=== PATIENT | female | born 1940 | race Caucasian/White ===

== ENCOUNTER 2016-10-01 15:18 | Inpatient (IN) | payer OTHER, MEDICARE ==
--- NOTE | 2016-10-01 15:32 | CPEKG ---
Heart Rate: 76 RR Interval: 789 P-R Interval: 172 QRSD Interval: 66 QT Interval: 376 QTC Interval: 423 P [place]: 41 QRS [place]: -7 T Wave [place]: 26 EKG Severity - ABNORMAL ECG - EKG Impression: SINUS RHYTHM EKG Impression: PROBABLE INFERIOR INFARCT, OLD Electronically Signed By: Cheng Lou 01-Oct-2016 16:30:06
--- NOTE | 2016-10-01 15:44 | EDPHY ---
H & P Time Seen by Provider: 10/01/16 15:25 HPI/ROS: CHIEF COMPLAINT: Headache, left hip pain, low back pain after mechanical fall HISTORY OF PRESENT ILLNESS: The patient presents to the ED complaining of headache, left hip pain, low back pain after mechanical fall at her assisted living facility. The patient denies loss of consciousness. She denies any cervical spine pain. The patient denies the additional complaints of abdominal pain, difficulty breathing, focal numbness or weakness. The patient denies taking anticoagulants but is on Plavix and aspirin. The patient denies prior history of hip replacement or hip fracture. The patient reports her pain is moderate in nature and worsened with movement. REVIEW OF SYSTEMS: A comprehensive 10 point review of systems is otherwise negative aside from elements mentioned in the history of present illness. Source: Patient Exam Limitations: No limitations - Family History Significant Family History: No pertinent family hx - Social History Smoking Status: Never smoked - Physical Exam Exam: General Appearance: Alert, no distress Head: Posterior scalp tenderness, no hematoma Eyes: Pupils equal, round, reactive ENT, Mouth: No hemotympanum, no oral trauma Neck: Minimal tenderness at the base of the skull Respiratory: No chest wall tender, subcutaneous air, lungs clear bilaterally Cardiovascular: Regular rate and rhythm Abdomen: Abdomen is soft and nontender, pelvis stable Skin: Superficial skin abrasions noted to the bilateral upper extremities Back: Tenderness to palpation in the mid lumbar spine Extremities: Tenderness to palpation and active range of motion/passive range of motion left hip Neurological: A&Ox3, normal motor function, normal sensory exam Constitutional: Initial Vital Signs Temperature (C) 36.9 C 10/01/16 15:56 Heart Rate 74 10/01/16 15:56 Respiratory Rate 16 10/01/16 15:56 Blood Pressure 148/110 H 10/01/16 15:56 O2 Sat (%) 93 10/01/16 15:56 O2 Delivery Mode Room Air Allergies/Adverse Reactions: amoxicillin trihydrate [From Augmentin] Allergy (Intermediate, Verified 15:51) fluoxetine Allergy (Intermediate, Verified 10/01/16 15:51) Hives hydrocodone bitartrate [From Vicodin] Allergy (Intermediate, Verified 10/01/16 15:51) potassium clavula *RETIRED-03/25/12 [From Augmentin] Allergy (Intermediate, Verified 10/01/16 15:51) [id number] Reductase Inhibitor Allergy (Verified 10/01/16 15:51) Home Medications: Medication Instructions Recorded Ascorbic Acid [Vitamin C 500 mg 500 mg PO DAILY 10/01/16 (*)] Aspirin EC [Aspirin EC 81 mg (*)] 81 mg PO HS 10/01/16 Cholecalciferol Vit D3 [Vitamin D3 1,000 units PO BID 10/01/16 (*)] Clopidogrel Bisulfate [Plavix (*)] 75 mg PO DAILY 10/01/16 Cyanocobalamin [Vitamin B12 (*)] 100 mcg PO Q2D 10/01/16 Fluticasone Nasal [Flonase Nasal 2 sprays [place] DAILY 10/01/16 [place] (RX)] Furosemide [Lasix 20 MG (*)] 20 mg PO DAILY PRN 10/01/16 [place]/Supplements -Info Only 1 ea PO DAILY 10/01/16 Loratadine [Claritin 10 mg] 10 mg PO DAILY 10/01/16 Melatonin [Melatonin 1 mg] 1 mg PO HS 10/01/16 Olmesartan Medoxomil [Benicar 20 20 mg PO DAILY 10/01/16 mg (*)] Sertraline HCl [Zoloft 100mg (*)] 150 mg PO DAILY 10/01/16 buPROPion SR [Wellbutrin 100mg SR 100 mg PO BID 10/01/16 (*)] Medical Decision Making - Diagnostics EKG Interpretation: EKG: Complete interpretation has been separately recorded in the [email or web address] archive. Summary impression: Sinus rhythm, rate 76 Imaging: CT head without contrast: Negative for intracranial hemorrhage or acute abnormality. Images reviewed by myself and discussed with radiologist Dr. José Antonio Quintanilla. CT cervical spine: Negative for acute fracture, he is 1 images reviewed by myself and discussed with radiologist Dr. José Antonio Quintanilla. Left hip x-ray: Negative for acute fracture by my interpretation. Formal interpretation by Radiology pending. Lumbar spine x-ray: DJD noted, old-appearing compression fracture noted in the upper lumbar spine, L4 compression fracture CT Lumbar spine: Acute L4 compression fracture, ? pathologic characteristics CT Left Hip: Negative for acute fracture ED Course/Re-evaluation: The patient presents to the ED with headache, low back pain and left hip pain following a mechanical fall. The patient's head demonstrates no evidence of an intracranial hemorrhage or skull fracture. The patient's cervical spine x-ray is negative. The patient did have an unremarkable left hip x-ray by my interpretation. She does appear to have an acute L4 compression fracture. The patient is neurologically intact. We did attempt to ambulate the patient however she is having a fair amount of discomfort. She will require admission to the hospital. Consultation is made with Dr. Adrienne Rosales from the hospitalist service. The CT scan of the left hip and lumbar spine will be ordered for further evaluation of her pain. Differential Diagnosis: Differential diagnosis considered includes intracranial hemorrhage, cervical spine fracture, pelvic fracture, lumbar spine fracture, hip fracture - Data Points Laboratory Results: Laboratory Results 10/01/16 16:00 10/01/16 16:00 10/01/16 10/01/16 16:00 16:00 WBC 5.78 10^3/uL 10^3/uL (3.80-9.50) RBC 4.99 10^6/uL 10^6/uL (4.18-5.33) Hgb 13.3 g/dL g/dL (12.6-16.3) Hct 41.6 % % (38.0-47.0) MCV 83.4 fL fL (81.5-99.8) MCH 26.7 pg L pg (27.9-34.1) MCHC 32.0 g/dL L g/dL (32.4-36.7) RDW 15.9 % H % (11.5-15.2) Plt Count 138 10^3/uL L 10^3/uL (150-400) MPV 11.3 fL fL (8.7-11.7) Neut % (Auto) 72.3 % % (39.3-74.2) Lymph % (Auto) 19.4 % % (15.0-45.0) [place] % (Auto) 5.9 % % (4.5-13.0) Eos % (Auto) 1.0 % % (0.6-7.6) Baso % (Auto) 0.5 % % (0.3-1.7) Nucleat RBC Rel Count 0.0 % % (0.0-0.2) Absolute Neuts (auto) 4.18 10^3/uL 10^3/uL (1.70-6.50) Absolute Lymphs (auto) 1.12 10^3/uL 10^3/uL (1.00-3.00) Absolute Monos (auto) 0.34 10^3/uL 10^3/uL (0.30-0.80) Absolute Eos (auto) 0.06 10^3/uL 10^3/uL (0.03-0.40) Absolute Basos (auto) 0.03 10^3/uL 10^3/uL (0.02-0.10) Absolute Nucleated RBC 0.00 10^3/uL 10^3/uL (0-0.01) Immature Gran % 0.9 % % (0.0-1.1) Immature Gran # 0.05 10^3/uL 10^3/uL (0.00-0.10) Sodium 141 mEq/L mEq/L (134-144) Potassium 4.5 mEq/L mEq/L (3.5-5.2) Chloride 104 mEq/L mEq/L (97-110) Carbon Dioxide 27 mEq/l mEq/l (22-31) Anion Gap 10 mEq/L mEq/L (8-16) BUN 26 mg/dL H mg/dL (7-23) Creatinine 1.1 mg/dL H mg/dL (0.6-1.0) Estimated GFR 48 Glucose 142 mg/dL H mg/dL (70-100) Calcium 9.2 mg/dL mg/dL (8.5-10.4) Departure - Departure Disposition: [facility] Inpatient Acute Clinical Impression: Lumbar compression fracture, Left hip pain Condition: Good
[2016-10-01 16:13] LABS: % IMMATURE GRANULYOCYTES 0.9 % (0.0-1.1); ABSOLUTE IMMATURE GRANULOCYTES 0.05 10^3/uL (0.00-0.10); ADD DIFF? NO; ADD MORPH? NO; ADD SCAN? NO; ATYPICAL LYMPHOCYTE FLAG 0 (0-99); FRAGMENT RBC FLAG 0 (0-99); HEMATOCRIT 41.6 % (38.0-47.0); HEMOGLOBIN 13.3 g/dL (12.6-16.3); LEFT SHIFT FLG 0 (0-99); LIPEMIA HEMOLYSIS FLAG 80 (0-99); MEAN CELL HEMOGLOBIN 26.7 pg (27.9-34.1); MEAN CELL VOLUME 83.4 fL (81.5-99.8); MEAN PLATELET VOLUME 11.3 fL (8.7-11.7); PLATELET CLUMPS FLAG 30 (0-99); PLATELET COUNT 138 10^3/uL (150-400); RED BLOOD CELL COUNT 4.99 10^6/uL (4.18-5.33); RED CELL DISTRIBUTION WIDTH 15.9 % (11.5-15.2)
[2016-10-01 16:33] LABS: ANION GAP 10 mEq/L (8-16); CALCIUM 9.2 mg/dL (8.5-10.4); CARBON DIOXIDE 27 mEq/l (22-31); CHLORIDE 104 mEq/L (97-110); CREATININE 1.1 mg/dL (0.6-1.0); GLOMERULAR FILTRATION RATE 48; GLUCOSE 142 mg/dL (70-100); POTASSIUM 4.5 mEq/L (3.5-5.2); SODIUM 141 mEq/L (134-144)
[2016-10-01] MEDS ORDERED: BISACODYL 10 MG SUPP PR PRN (18:14)
[2016-10-01] MEDS ORDERED: ONDANSETRON 4 MG/2 ML VIAL IVP PRN (18:14)
[2016-10-01] MEDS ORDERED: POLYETHYLENE GLYCOL 3350 17 GM PKT PO PRN (18:14)
[2016-10-01] MEDS ORDERED: HYDROmorphONE/DILAUDID 1 MG/ML SYR IVP PRN (18:14)
[2016-10-01] MEDS ORDERED: MAGNESIUM HYDROXIDE 30 ML UDCUP PO PRN (18:14)
[2016-10-01] MEDS ORDERED: ONDANSETRON DISINTEGRATING 4 MG TAB PO PRN (18:14)
[2016-10-01] MEDS ORDERED: PROMETHAZINE HCL 25 MG TAB PO PRN (18:14)
[2016-10-01] MEDS ORDERED: LACTULOSE 20 GM/30 ML UDCUP PO PRN (18:14)
[2016-10-01] MEDS ORDERED: FUROSEMIDE 20 MG TAB PO PRN (18:16)
[2016-10-01] MEDS ORDERED: DIAZEPAM 2 MG TAB PO PRN (18:27)
[2016-10-01] MEDS: oxyCODONE IR 5 MG TAB PO PRN (19:00)
[2016-10-01] MEDS: CHOLECALCIFEROL VIT D3 1,000 UNITS TAB PO SCH (19:43)
[2016-10-01] MEDS: SENNOSIDES/DOCUSATE SODIUM TAB PO SCH (19:43)
[2016-10-01] MEDS: buPROPion SR 100 MG TAB PO SCH (19:43)
--- NOTE | 2016-10-01 19:43 | GHP ---
[f rep st] HISTORY AND PHYSICAL DATE OF ADMISSION: 10/01/2016 CHIEF COMPLAINT: Back and hip pain. HISTORY OF PRESENT ILLNESS: This is a 76-year-old female with a past medical history that includes diabetes, coronary artery disease, as well as multiple recurrent falls and osteoporosis with prior c ompression fractures, who presents after a mechanical fall at home. The patient notes that she was in her bedroom plugging in her wireless phone when she started to walk backwards, turned her head, a nd abruptly lost her balance and fell, landing on her on her left hip and back in the bathroom. She had immediate pain in her lower back and left hip, as well as the back of her head, which she did h it on the ground. She denied any loss of consciousness. She denied any preceding symptoms of chest pain or palpitations, but she did note that she turned her head right before she fell and that she frequently will lose her balance when she turns her head quickly like that. She currently feels bet ter after receiving pain medications in the emergency room, but now has also developed some right fl ank pain as well. She is not short of breath. She also has some bruises on her arms which she stat es have been present in the past and that she thinks are related to her Plavix medication. PAST MEDICAL HISTORY: 1. Diabetes. 2. Hypertension. 3. Hyperlipidemia. 4. Ovarian cancer. 5. Anxiety. 6. Osteoporosis with prior compression fractures. 7. Recurrent falls. PAST SURGICAL HISTORY: Resection of ovarian cancer. FAMILY HISTORY: Parents are . Also, multiple family members with coronary artery disease. SOCIAL HISTORY: The patient currently lives at [facility]. She is a nonsmo ker, nondrinker. She usually uses a walker to get around, but notes she did not use her walker toda y when she fell. REVIEW OF SYSTEMS: A 10-point review of systems was obtained and is negative, except as per HPI. HOME MEDICATIONS: 1. Vitamin B12. 2. Ascorbic acid. 3. Loratadine. 4. Cholecalciferol. 5. Wellbutrin. 6. Fluticasone nasal spray. 7. Sertraline. 8. Plavix. 9. Olmesartan. 10. Lasix. 11. Melatonin. 12. Aspirin. ALLERGIES: Multiple and include penicillins, hydrocodone, and statins. PHYSICAL EXAM: VITAL SIGNS: Blood pressure 174/74, heart rate 79, respiratory rate 16, O2 saturati ons 97% on room air, temperature is 36.2 GENERAL APPEARANCE: The patient is an elderly female. Sh e is awake and alert. She is in no acute distress. HEENT: Eyes: Anicteric. Oropharynx: Clear. CARDIOVASCULAR: Regular rate and rhythm, no murmurs, rubs, or gallops. PULMONARY: Clear to auscu ltation bilaterally. Normal work of breathing. ABDOMEN: Soft, nontender. Positive bowel sounds. EXTREMITIES: No clubbing, cyanosis, or edema. She has some tenderness over the left posterior hip and upper thigh, but normal range of motion, limited somewhat by pain. SKIN: Warm, dry, well perf used. NEURO/PSYCH: Oriented and appropriate, pleasant. CLINICAL DATA: Labs reviewed: Remarkable for creatinine of 1.1. Chemistry otherwise unremarkable. Platelet count of 138, which is relatively stable. IMAGING: The patient had a cervical spine CT, a head CT, that were negative for fracture or any acu te intracranial abnormalities. Chest x-ray, personally reviewed and interpreted, shows clear lungs without pneumothorax or pleural effusion. She has a stable, chronically elevated right hemidiaphragm. Hip x-ray is negative. Lumbar spine x-ray shows compression fracture of L4. Extremity CT and lumbar CT showing same compression fracture at L4 with concerns that this could be a pathological fracture. This was discussed with the radiologist blockmason. EKG, personally reviewed and interpreted, shows sinus rhythm, evidence of likely old inferior infarc t. ASSESSMENT AND PLAN: This is a 76-year-old female with multiple medical issues including ovarian ca ncer, diabetes, coronary artery disease, as well as multiple falls, presenting status post fall with significant hip and back pain, leading to inability to ambulate. 1. Back pain. She does have an L4 compression fracture which is in the vicinity of her pain of unc ertain age. On lumbar spine CT, this was more concerning for possible pathologic fracture which is concerning given her history of ovarian cancer. She is currently unable to ambulate safely secondar y to pain. She is being admitted for pain management which will consist of oral and IV opiates for the time being, as well as p.r.n. Valium for likely associated muscle spasm. Consider addition of i ntranasal calcitonin if pain persists. 2. Hip pain as per above. No evidence of acute fracture. PT and OT to be involved. 3. Lateral chest pain. No evidence of rib fractures on chest x-ray. Her EKG does not show anythin g concerning and she does not really complain of anything concerning for chest pain of cardiac etiol ogy. Should this lateral pain continue, would obtain a dedicated rib x-ray, but will hold off for t he time being, as her exam is difficult at the moment given diffuse pain. 4. Recurrent falls. Concerning in a patient chronically on aspirin and Plavix. She too brings up this concern herself and wonders if these medications are still necessary. It does appear that her last cardiac intervention was back in 2008. So, given her recurrent falls, would likely be reasonab le to discontinue Plavix. 5. Diabetes. Last hemoglobin A1c was 6.4. Does not appear that she is currently on any diabetic m edications, but rather is dietarily managed. Will continue a diabetic diet while inhouse. 6. History of ovarian cancer. Again, concerning with L4 compression fracture, having signs concern ing for a possible pathologic fracture. She will likely be able to be discharged in the coming 1-2 days and it would be reasonable to have her follow up with her oncologist for consideration of a PET scan so long as she medically improves from her current hospitalization as expected. 7. Thrombocytopenia. This appears to be chronic. She does have evidence of purpura. Again, her t hrombocytopenia is chronic and relatively mild, but I will trend while she is in-house. DISPOSITION: Observation status. I suspect she will need less than 48 hours stay for evaluation an d management of above. Patient is new to my care. Old records reviewed, summarized as per HPI and past medical history. C are plan reviewed with the ER physician, including plans for observation. Primary care physician is Dr. Dorman. Neurosurgeon is Dr. Gutiérrez. /[id number]/MODL
[2016-10-01] MEDS: ASPIRIN EC 81 MG TAB PO SCH (19:44)
[2016-10-01] MEDS ORDERED: MELATONIN 1 MG PO SCH (21:00)
[2016-10-01] MEDS: MELATONIN 3 MG TAB PO SCH (21:01)
[2016-10-02] MEDS: ACETAMINOPHEN 325 MG TAB PO PRN (04:14)
[2016-10-02 05:02] LABS: % IMMATURE GRANULYOCYTES 0.4 % (0.0-1.1); ABSOLUTE IMMATURE GRANULOCYTES 0.02 10^3/uL (0.00-0.10); ADD DIFF? NO; ADD MORPH? NO; ADD SCAN? NO; ATYPICAL LYMPHOCYTE FLAG 0 (0-99); FRAGMENT RBC FLAG 0 (0-99); HEMATOCRIT 38.3 % (38.0-47.0); HEMOGLOBIN 12.4 g/dL (12.6-16.3); LEFT SHIFT FLG 0 (0-99); LIPEMIA HEMOLYSIS FLAG 80 (0-99); MEAN CELL HEMOGLOBIN 26.8 pg (27.9-34.1); MEAN CELL HEMOGLOBIN CONCENTR. 32.4 g/dL (32.4-36.7); MEAN CELL VOLUME 82.7 fL (81.5-99.8); MEAN PLATELET VOLUME 10.9 fL (8.7-11.7); PLATELET CLUMPS FLAG 0 (0-99); PLATELET COUNT 117 10^3/uL (150-400); RED BLOOD CELL COUNT 4.63 10^6/uL (4.18-5.33); RED CELL DISTRIBUTION WIDTH 15.7 % (11.5-15.2)
[2016-10-02 05:24] LABS: ANION GAP 11 mEq/L (8-16); CALCIUM 8.7 mg/dL (8.5-10.4); CARBON DIOXIDE 23 mEq/l (22-31); CHLORIDE 104 mEq/L (97-110); CREATININE 0.8 mg/dL (0.6-1.0); GLOMERULAR FILTRATION RATE > 60; GLUCOSE 152 mg/dL (70-100); POTASSIUM 4.2 mEq/L (3.5-5.2); SODIUM 138 mEq/L (134-144)
[2016-10-02] MEDS: SERTRALINE HCL 100 MG TAB PO SCH (08:48)
[2016-10-02] MEDS: ENOXAPARIN 40 MG/0.4 ML SYR SC SCH (08:48)
[2016-10-02] MEDS: CETIRIZINE 10 MG TAB PO SCH (08:49)
[2016-10-02] MEDS: CHOLECALCIFEROL VIT D3 1,000 UNITS TAB PO SCH ×2 (08:49→20:54)
[2016-10-02] MEDS: buPROPion SR 100 MG TAB PO SCH ×2 (08:49→20:54)
[2016-10-02] MEDS: CLOPIDOGREL BISULFATE 75 MG TAB PO SCH (08:49)
[2016-10-02] MEDS: ASCORBIC ACID 500 MG TAB PO SCH (08:49)
[2016-10-02] MEDS: SENNOSIDES/DOCUSATE SODIUM TAB PO SCH ×2 (08:50→20:53)
[2016-10-02] MEDS: OLMESARTAN MEDOXOMIL 20 MG TAB PO SCH (08:50)
[2016-10-02] MEDS: FLUTICASONE NASAL 120 SPRAYS/16 GM MDI EACHNARE SCH (08:53)
[2016-10-02] MEDS ORDERED: NON-FORMULARY NEW DRUG (Loratadine [Claritin 10 Mg] 10 MG) PO SCH (09:00)
--- NOTE | 2016-10-02 14:35 | HOSPPROG ---
Hospitalist Progress Note Assessment/Plan: Patient is a 76-year-old female who presented to the emergency room after having a mechanical fall at home. She is complaining of back and hip pain. She has a history of diabetes, coronary artery disease, and recurrent falls with prior compression fractures today is my 1st encounter with the patient. Chart reviewed. * Back pain with an L4 compression fracture - likely osteoporotic or pathologic fracture- lumbar spine shows a compression fracture at L4 - lumbar CT shows a compression fracture at L4 with concerns of a pathologic fracture - pain is severe and is in pain while lying still/ will ask neurosurgery to see (spoke with Charo ORTEGA) - in addition, she has a hx of ovarian cancer approximately 7 years ago treated at [facility]/ spoke with Dr Gabriel/ he will see tomorrow/if gets a procedure,will need a biopsy * hip pain - no acute fracture -deferred pain from the above? * lateral chest pain - no evidence of rib fractures on the chest x-ray * gait instability with recurrent falls -patient describes being dizzy/ on bp meds, diuretic -will have nursing staff check orthostatics -parameters on blood pressure * diabetes - diet controlled * history of ovarian cancer * thrombocytopenia *DVT prophylaxis: LMWH *Plan: patient requires another midnight stay, in too much pain, difficulty to ambulate/will need more evaluation by both neurosurgery and hematology. This will make her IP status. Appreciate the consults involved in her care Subjective: Chantal Maguire is c/o back pain, left hip pain, has dizziness when getting oob. Objective: Vital Signs Temp Pulse Resp BP Pulse Ox 36.7 C 77 16 116/52 L 90 L 10/02/16 08:09 10/02/16 11:05 10/02/16 11:05 10/02/16 11:05 10/02/16 11:05 Laboratory Results 10/02/16 04:25 10/02/16 04:25 10/01/16 10/02/16 10/03/16 05:59 05:59 05:59 Intake Total 200 Output Total 300 Balance 200 -300 - Physical Exam Constitutional: uncomfortable, No not in pain Eyes: PERRL Ears, Nose, Mouth, Throat: hearing normal Cardiovascular: regular rate and rhythym Respiratory: no respiratory distress Gastrointestinal: normoactive bowel sounds Skin: warm Musculoskeletal: muscular tenderness (left hip area) Neurologic: AAOx3 Psychiatric: interacting appropriately, not anxious, not encephalopathic ICD10 Worksheet Patient Problems: Problems Problem Status Onset Left hip pain Acute Lumbar compression fracture Acute
[2016-10-02] MEDS: LIDOCAINE 5% 1 EA PATCH TD SCH (16:14)
[2016-10-02] MEDS: oxyCODONE IR 5 MG TAB PO PRN ×2 (16:41→20:55)
--- NOTE | 2016-10-02 19:30 | NEUSURGPN ---
Assessment/Plan: Neurosurgery Consutl- Full consult dictated 76 yo female with hx of compression fracture at T12 a few weeks ago and put into brace, now with new fall and L4 compression fracture with left leg and hip pain. Exam positive for tenderness near L4. -MRI Lumbar w and wo contrast being performed as pt has hx of ovarian CA -Will assess acuity of fracture and plan for treatment plan at that time -Continue PT/OT -Continue to optimize pain control -patient has brace from prior compression fracture. Will need to see what kind of brace she has to see if she can use this brace still -If pain not tolerated with brace, could look into kyphoplasty possibly -Neurosurgery will continue to follow this patient. Ana Rosa COLLADO - Physician Discussed Patient with : Slava Patient Seen by : Slava Neurosurgery Physical Exam - Vitals, I&O, Labs I and O 10/01/16 10/02/16 10/03/16 05:59 05:59 05:59 Output Total 400 Balance -400 Output: Urine (ml) 400 Toilet 400 Other: Number of Voids Toilet 2 Vital Signs Temp Pulse Resp BP Pulse Ox 36.9 C 82 14 103/75 89 L 10/02/16 19:08 10/02/16 19:08 10/02/16 19:08 10/02/16 16:20 10/02/16 19:08 ICD10 Worksheet Patient Problems: Problems Problem Status Onset Left hip pain Acute Lumbar compression fracture Acute
[2016-10-02] MEDS ORDERED: GADOBUTROL 10 ML VIAL IVP ONE (19:53)
--- NOTE | 2016-10-02 20:42 | GCON ---
[f rep st] CONSULTATION NEUROSURGERY CONSULTATION CHIEF COMPLAINT: Back pain. HISTORY OF PRESENT ILLNESS: This is a 76-year-old female, who presented to the emergency room after a mechanical fall at home yesterday. She is currently complaining of back and left hip pain. The patient has a history of diabetes, coronary artery disease, with recurrent falls, most recently 2 da ys ago she had a fall. She states that she has had 3 or 4 bad falls since June. She states sarath t she was also seen in [place] at her last fall about a month ago for another compression fracture and was seen by Dr. Gutiérrez and put into a brace. She states that during all of her falls that she has lost her footing or her balance. She denies any loss of consciousness, denies lightheadedness. She denies any weakness in her legs. Today she states that her fall now has caused her to feel pain in her lower lumbar spine. This pain radiates to her left buttock and down the back of her leg into h er ankle. The patient states that she was able to bear weight on this leg today and was able to wal k around the hallway some. The patient denies any loss of bowel or bladder control. A CT scan was performed that shows a compression fracture at L4. The patient does have a history of ovarian cance r, so there were also concerns of pathologic fracture. The patient states that while lying in bed h er pain is still constant running down the back of her legs, but her back pain overall is better. H er pain is worse with any movement. REVIEW OF SYSTEMS: All pertinent positive and negative review of systems are as stated in the HPI. PAST MEDICAL HISTORY: The patient's past medical history is consistent for history of ovarian cance r, thrombocytopenia, diabetes, coronary artery disease, compression fracture, low back pain, recurre nt fall. PAST SURGICAL HISTORY: Consists of resection of ovarian cancer. FAMILY HISTORY: The patient's parents are . The patient does have multiple family members with coronary artery disease. The patient denies any past neurological history such as aneurysms, s troke or back problems. SOCIAL HISTORY: The patient currently lives at [facility]. The patient denies any t obacco use. She denies any alcohol use. She denies any other illicit drug use. MEDICATIONS: Include vitamin B12, ascorbic acid, loratadine, vitamin D, Wellbutrin, fluticasone ludivina al spray, sertraline, Plavix, olmesartan, Lasix, melatonin, aspirin. ALLERGIES: Patient is allergic to penicillin, hydrocodone and statin. OBJECTIVE: VITAL SIGNS: Blood pressure 103/75, heart rate 81, respiratory rate 18, O2 saturation 9 9% on room air, temperature 36.2. CONSTITUTIONAL: This is a well-developed, well-nourished elderly female, in no acute distress. She is alert and oriented x3. HEENT: Head is normocephalic, atraum atic. Eyes pupils are equal, react to light and accommodation. Extraocular muscles are intact. Th ere is no facial droop. The patient is conversing appropriately. NECK: Supple. RESPIRATORY: The patient has normal work of breathing. : The patient has no guarding. NEURO: Cranial nerves 2- 12 are grossly intact. Tongue protrusion is midline. No facial droop. Face is symmetrical. Acces joelle muscles are 5/5 and equal in strength. Motor: Bilateral upper extremities are 5/5 and equal i n strength in all muscle groups including biceps, triceps, wrist extensors and flexors, interossei a nd bead flipper. Bilateral lower extremities are 5/5 and equal in strength in hamstrings, quadriceps, dorsi flexion, plantar flexion, and EHL. Left lower extremity is somewhat pain limited. Sensation is int act with normal dermatomal distribution of the body. Other reflexes negative for clonus. EXTREMITI ES: No cyanosis or edema noted. MUSCULOSKELETAL: The patient is extremely tender to palpation ove r the lower mid lumbar spine. She is somewhat tender to palpation over the upper lumbar spine. LABORATORY DATA: White blood cell count 5.16, red blood cell count 4.63, hemoglobin 12.4, hematocri t 38.3, platelet count is 117. Sodium 138, potassium 4.2, chloride 104, carbon dioxide 23, anion ga p 11, BUN 21, creatinine 0.8, GFR greater than 60. Glucose 152, calcium 8.7. DIAGNOSTIC IMAGING: The patient had a lumbar spine CT without contrast performed that shows: 1. Moderate acute compression fracture of L4, potentially pathologic. 2. Remote severe wedge-shaped compression fracture of T12 with focal kyphosis. 3. Degenerative disc disease predominantly at L1 and L2. Lumbar spine x-ray shows moderate compression fracture of L4, uncertain age wedge-shaped compression deformity of T12 with focal kyphosis. Patient had a head CT, without contrast, that shows normal noncontrast CT of the brain without any i ntracranial hemorrhage, mass effect, swelling or extra-axial fluid collection. The ventricles were normal caliber and midline. The bones appeared unremarkable. The paranasal sinuses are clear. The patient had a hip x-ray performed that showed a negative radiograph of the left hip for any frac ture. Patient had a cervical spine CT performed without contrast that is negative for any acute findings i ncluding a negative for any fracture. A chest x-ray was performed, which showed stable negative chest. A CT of the left hip was performed which was negative for left femoral fracture or acetabular fracture. The left hip joint space is i ntact. ASSESSMENT AND PLAN: This is a 76-year-old female who was recently seen by Dr. Gutiérrez a few weeks a go at [place] and was diagnosed with compression fracture at T12 at that time and placed in a brace. Since then, she has had another fall and now having what is most likely a new compression fracture a t L4. Currently, she is neurologically intact. She is having what seems like radicular pain down h er left leg that is new as of this morning. She has no signs of cord compression including any weak ness or myelopathy. We will obtain a lumbar MRI in order to assess the acuity of this fracture. Du e to the patient's history of ovarian cancer and due to the CT report that stated this fracture may be pathologic, we will also get an MRI with contrast in order to rule out any pathological fractures . She was seen by the neurosurgical service at approximately 3:30 p.m. The patient already had a b race for her other compression fracture and likely if this fracture is also acute we could keep her in that brace, but we will need to assess further and look at the place that she had currently. The patient should continue with physical therapy and occupational therapy. Her pain continues to be o ptimized while on medications. Any changes in neuromotor exam, please contact the Neurosurgical gabbi Guthrie #: [id number]/MODL
[2016-10-02] MEDS: ASPIRIN EC 81 MG TAB PO SCH (20:54)
[2016-10-02] MEDS: MELATONIN 3 MG TAB PO SCH (20:54)
[2016-10-02] MEDS: PATCH REMOVAL 1 EA PATCH TD SCH (20:56)
--- NOTE | 2016-10-02 22:12 | GCON ---
[f rep st] CONSULTATION ONCOLOGY CONSULTATION DATE OF CONSULTATION: 10/02/2016 REASON FOR CONSULTATION: L4 and T12 vertebral compression fracture in a patient with history of [place] cancer. HISTORY OF PRESENT ILLNESS: This is a pleasant 76-year-old female who reports having a fall in November 2015. She was admitted to [facility]. She reports imaging studies revealed a lumbar vertebral compression fracture as well as a 2nd older compression fracture she cannot recall the location. T his was managed conservatively. She recently moved to an assisted living center due to gait instability and fall risk. She had a fa ll on Sunday of this week. She was admitted to the hospital. Imaging studies revealed an L4 verteb ral compression fracture. The radiology report mentions an area of masslike bone resorption suggest ing pathologic fracture with sclerosis of the vertebral body. She has a remote wedge-shaped arabella sonia fracture T12 with focal kyphosis. The patient reports moderate back pain. A CT of the head was unremarkable. She is scheduled to be seen by Neurosurgery in consultation tomorrow. She reports a history of uterine cancer treated with a hysterectomy at [facility] 6 years ago. She was told she had stage I disease and did not require any further treatment. She denies any other areas of bone pain. She denies recent weight loss. She does report some recen t stress due to her move from her home in [place] to an assisted living center in [place]. PAST MEDICAL HISTORY: 1. Prior fall with compression fracture. 2. Remote history of stage I uterine cancer, status post hysterectomy at [facility] (Dr. Branden Colvin). 3. Type 2 diabetes. 4. Osteoporosis. 5. Anxiety. 6. Hyperlipidemia. 7. Hypertension. PAST SURGICAL HISTORY: Hysterectomy for early stage uterine carcinoma. FAMILY MEDICAL HISTORY: Positive for coronary artery disease. SOCIAL HISTORY: The patient was recently living independently in [place], [place]. She recentl y moved into an assisted living facility ([facility]) in [place]. REVIEW OF SYSTEMS: As outlined above. PHYSICAL EXAM: GENERAL: Pleasant elderly female, lying in bed. She is in no acute distress. HEEN T: Pupils equal. Sclerae nonicteric. HEART: Regular without murmur. LUNGS: Clear bilaterally. ABDOMEN: Soft, nontender, nondistended with no palpable organomegaly or mass. EXTREMITIES: The p atient is able to move all 4 extremities without difficulty. No extremity swelling or edema. NEURO LOGIC: She is alert oriented and appropriate. IMAGING STUDIES: As outlined above. LABORATORY DATA: CBC, from today, white count 5.1, hemoglobin 12.4, hematocrit 38.3, platelet count is 117,000. CMP from today sodium 138, potassium 4.2, chloride 104, bicarb 23, BUN 21, creatinine 0.8, calcium 8.7. IMPRESSION: 1. L4 vertebral compression fracture. 2. Old T12 vertebral compression fracture. 3. Remote history of stage I uterine carcinoma. PLAN: The patient is a pleasant 76-year-old female who is admitted after a fall. CT shows an abnor mal appearing L4 vertebral body and an old compression fracture at T12. Per the patient's history, I believe that her L4 lesion may be related to a fall in November 2015, and certainly the abnormal areas could represent areas of bony regrowth in healing. I think it would be helpful to obtain her prior CT scan from [facility]. I think recurrent metastatic uterine cancer is highly unlikely given that her disease was very early stage and was treated greater than 5 years ago. If the patient does undergo neurosurgical intervention such as kyphoplasty, tissue should be obtaine d at that time and sent for pathology. I will send a serum protein electrophoresis to exclude an underlying plasma cell dyscrasia. I have a low suspicion of this. Our service will be happy to see the patient once she is discharged, in followup. Her questions were answered today. Total time for today's visit was approximately 45 minutes, of which greater than 50% was spent in co unseling and care coordination. /[id number]/MODL
--- NOTE | 2016-10-03 08:25 | NEUSURGPN ---
Assessment/Plan: 76 yo female with hx of compression fracture at T12 a few weeks ago and put into brace, now with new fall and L4 compression fracture with left leg and hip pain. Exam positive for tenderness near L4. -MRI Lumbar w and wo contrast completed, confirms acute fracture at L4 -Plan to attempt to treat conservatively with a Brandi brace to be worn when out of bed -Continue PT/OT -Continue to optimize pain control -if fails bracing, can discuss kyphoplasty Subjective: Was able to sleep through the night. Having pain at the back and left hip, posterior thigh. Objective: Awake. Alert. PERRL. EOMI Following commands Muscle strength full LE - Physician Discussed Patient with Dr.: Brock Neurosurgery Physical Exam - Vitals, I&O, Labs I and O 10/02/16 10/03/16 10/04/16 05:59 05:59 05:59 Output Total 400 Balance -400 Output: Urine (ml) 400 Toilet 400 Other: Intake Quantity Yes Sufficient Number of Voids Toilet 2 Vital Signs Temp Pulse Resp BP Pulse Ox 36.9 C 69 16 105/61 94 10/03/16 07:40 10/03/16 07:40 10/03/16 07:40 10/03/16 07:40 10/03/16 07:40 ICD10 Worksheet Patient Problems: Problems Problem Status Onset Left hip pain Acute Lumbar compression fracture Acute
[2016-10-03] MEDS: CETIRIZINE 10 MG TAB PO SCH (10:35)
[2016-10-03] MEDS: buPROPion SR 100 MG TAB PO SCH ×2 (10:35→20:12)
[2016-10-03] MEDS: SENNOSIDES/DOCUSATE SODIUM TAB PO SCH ×2 (11:18→20:10)
[2016-10-03] MEDS: CYANO/VITAMIN B12 100 MCG TAB PO SCH (11:25)
[2016-10-03] MEDS: ASCORBIC ACID 500 MG TAB PO SCH (11:25)
[2016-10-03] MEDS: CHOLECALCIFEROL VIT D3 1,000 UNITS TAB PO SCH ×2 (11:25→20:12)
[2016-10-03] MEDS: OLMESARTAN MEDOXOMIL 20 MG TAB PO SCH (11:26)
[2016-10-03] MEDS: ENOXAPARIN 40 MG/0.4 ML SYR SC SCH (11:27)
[2016-10-03] MEDS: CLOPIDOGREL BISULFATE 75 MG TAB PO SCH (11:27)
[2016-10-03] MEDS: LIDOCAINE 5% 1 EA PATCH TD SCH (11:28)
[2016-10-03] MEDS: oxyCODONE IR 5 MG TAB PO PRN ×2 (11:32→18:47)
[2016-10-03] MEDS: SERTRALINE HCL 100 MG TAB PO SCH (11:37)
[2016-10-03] MEDS: FLUTICASONE NASAL 120 SPRAYS/16 GM MDI EACHNARE SCH (12:18)
--- NOTE | 2016-10-03 14:58 | SOAPPROG ---
SOAP Progress Note Assessment/Plan: Assessment: 1) L4 compression fracture (occured after fall June 2016) 2) Old T12 compression fx 3) Remote h/o uterine cancer Plan: I have obtained copies of her imaging studies from [facility]. She fell 07/09/16, was seen in the ER there, and had a new L4 compression fracture on CT. She was seen by neurosurgery (Dr. Gutiérrez) and was in a brace. A follow up MRI done demonstrated an additional 20-25 % loss of height compared to the June CT. I will place a copy of these reports on her chart. The compression fracture seen on her new [facility] images thus does NOT appear to be new. The history is c/w a traumatic fracture. I do not suspect malignancy in this case. An SPEP was sent and is pending. If discharged, she should followup with her PCP. Neurosurgery has recommended conservative management. Above d/w patient. 10/03/16 14:52 10/03/16 14:59 Subjective: Seen by neurosurgery. Back brace recommended. Objective: Vital Signs Temp Pulse Resp BP Pulse Ox 37.0 C 78 18 111/61 94 10/03/16 11:21 10/03/16 11:21 10/03/16 11:21 10/03/16 11:26 10/03/16 07:40 10/02/16 10/03/16 10/04/16 05:59 05:59 05:59 Output Total 400 300 Balance -400 -300 - Time Spent With Patient Time Spent With Patient: 25 minutes (including time spent obtaining previous [facility] records) Physical Exam - Physical Exam General Appearance: alert, no apparent distress Neuro/Psych: alert, normal mood/affect ICD10 Worksheet Patient Problems: Problems Problem Status Onset Left hip pain Acute Lumbar compression fracture Acute
--- NOTE | 2016-10-03 16:00 | HOSPPROG ---
Hospitalist Progress Note Assessment/Plan: Patient is a 76-year-old female who presented to the emergency room after having a mechanical fall at home. She is complaining of back and hip pain. She has a history of diabetes, coronary artery disease, and recurrent falls with prior compression fractures today is my 1st encounter with the patient. Chart reviewed. * Back pain with an L4 compression fracture - likely osteoporotic lumbar spine shows a compression fracture at L4 and old - lumbar CT shows a compression fracture at L4 - pain is better/ appreciate neurosurgery consult - appreciate Harvey seeing * hip pain - no acute fracture -deferred pain from the above? * lateral chest pain - no evidence of rib fractures on the chest x-ray * gait instability with recurrent falls -patient describes being dizzy/ on bp meds, diuretic -will have nursing staff check orthostatics -parameters on blood pressure * diabetes - diet controlled * history of ovarian cancer * thrombocytopenia *DVT prophylaxis: LMWH *Plan: needs back brace from home. Difficulty to ambulate/PT/OT. Appreciate the consults involved in her care Plan to DC home in am with [facility] Subjective: Up in chair. Pain stable. No specific complaints. Objective: Vital Signs Temp Pulse Resp BP Pulse Ox 37.0 C 78 18 111/61 94 10/03/16 11:21 10/03/16 11:21 10/03/16 11:21 10/03/16 11:26 10/03/16 07:40 10/02/16 10/03/16 10/04/16 05:59 05:59 05:59 Output Total 400 300 Balance -400 -300 - Physical Exam Constitutional: no apparent distress, appears nourished, uncomfortable Eyes: PERRL, anicteric sclera, EOMI Ears, Nose, Mouth, Throat: moist mucous membranes, hearing normal, ears appear normal Cardiovascular: No JVD, No tachycardia, No edema Respiratory: no respiratory distress, no rales or rhonchi, reduced air movement Gastrointestinal: No tenderness, No ascites, No guarding Skin: warm, normal color, erythema Musculoskeletal: no joint effusions, pain with ROM, generalized weakness Neurologic: AAOx3 Psychiatric: interacting appropriately, not anxious, not encephalopathic ICD10 Worksheet Patient Problems: Problems Problem Status Onset Lumbar compression fracture Acute Left hip pain Acute
[2016-10-03] MEDS: MELATONIN 3 MG TAB PO SCH (20:11)
[2016-10-03] MEDS: ASPIRIN EC 81 MG TAB PO SCH (20:11)
[2016-10-03] MEDS: PATCH REMOVAL 1 EA PATCH TD SCH (20:20)
[2016-10-04] MEDS: ACETAMINOPHEN 325 MG TAB PO PRN ×3 (02:40→11:30)
--- NOTE | 2016-10-04 08:07 | SOAPPROG ---
SOAP Progress Note Assessment/Plan: Assessment: 76 yo F with old T12 and acute L4 compression fractures Plan: stable TLSO brace when out of bed pt seems to be tolerating the brace ok will sign off and have patient follow up with Dr Gutiérrez in 2 weeks, please call with neuro changes discussed with Dr Gutiérrez 10/04/16 08:05 Subjective: continued back pain between shoulders with some pain in hips. No leg pain, no weakness. Objective: Vital Signs Temp Pulse Resp BP Pulse Ox 36.6 C 64 14 119/57 L 98 10/04/16 07:34 10/04/16 07:34 10/04/16 07:34 10/04/16 07:34 10/04/16 07:34 10/03/16 10/04/16 10/05/16 05:59 05:59 05:59 Intake Total 2000 Output Total 400 1000 Balance -400 1000 AAOX4, +FC PERRL, EOMI, no facial droop 5/5 + light touch ICD10 Worksheet Patient Problems: Problems Problem Status Onset Left hip pain Acute Lumbar compression fracture Acute
[2016-10-04] MEDS: LIDOCAINE 5% 1 EA PATCH TD SCH ×2 (08:43→11:31)
[2016-10-04] MEDS: ENOXAPARIN 40 MG/0.4 ML SYR SC SCH (08:43)
[2016-10-04] MEDS: SERTRALINE HCL 100 MG TAB PO SCH (08:44)
[2016-10-04] MEDS: CETIRIZINE 10 MG TAB PO SCH (08:48)
[2016-10-04] MEDS: buPROPion SR 100 MG TAB PO SCH ×2 (08:48→21:07)
[2016-10-04] MEDS: CHOLECALCIFEROL VIT D3 1,000 UNITS TAB PO SCH ×2 (08:48→21:07)
[2016-10-04] MEDS: ASCORBIC ACID 500 MG TAB PO SCH (08:48)
[2016-10-04] MEDS: CLOPIDOGREL BISULFATE 75 MG TAB PO SCH (08:48)
[2016-10-04] MEDS: SENNOSIDES/DOCUSATE SODIUM TAB PO SCH ×2 (08:49→21:08)
[2016-10-04] MEDS: FLUTICASONE NASAL 120 SPRAYS/16 GM MDI EACHNARE SCH (09:05)
[2016-10-04] MEDS: OLMESARTAN MEDOXOMIL 20 MG TAB PO SCH (09:08)
--- NOTE | 2016-10-04 11:11 | HOSPPROG ---
Hospitalist Progress Note Assessment/Plan: Patient is a 76-year-old female who presented to the emergency room after having a mechanical fall at home. She is complaining of back and hip pain. She has a history of diabetes, coronary artery disease, and recurrent falls with prior compression fractures * Back pain with an L4 compression fracture - likely osteoporotic lumbar spine shows a compression fracture at L4 and old - lumbar CT shows a compression fracture at L4 - pain is better/ appreciate neurosurgery consult - appreciate Harvey seeing -pt tolerating brace -wants conservative treatment * hip pain - no acute fracture -deferred pain from the above - cont lido patch -add second lido patch * lateral chest pain - no evidence of rib fractures on the chest x-ray * gait instability with recurrent falls -patient describes being dizzy/ DC bp meds, diuretic, -will have nursing staff check orthostatics -parameters on blood pressure * diabetes - diet controlled * history of ovarian cancer * thrombocytopenia *DVT prophylaxis: LMWH *Plan: Cont back brace. Difficult to ambulate/PT/OT. Appreciate the consults involved in her care Pt unsafe to DC home, given increased needs. Will go to [facility] for rehab hopefully in am. D/W CM/RN. Subjective: Still having significant pain. Unable to move easily and put on brace. had a difficult time getting to bathroom last night. Objective: Vital Signs Temp Pulse Resp BP Pulse Ox 36.6 C 64 14 100/54 L 98 10/04/16 07:34 10/04/16 07:34 10/04/16 07:34 10/04/16 09:08 10/04/16 07:34 10/03/16 10/04/16 10/05/16 05:59 05:59 05:59 Intake Total 2000 Output Total 400 1000 400 Balance -400 1000 -400 - Physical Exam Constitutional: no apparent distress, appears nourished, uncomfortable Eyes: PERRL, anicteric sclera, EOMI Ears, Nose, Mouth, Throat: moist mucous membranes, hearing normal, ears appear normal Cardiovascular: No JVD, No tachycardia, No bradycardia Respiratory: no respiratory distress, no rales or rhonchi, reduced air movement Gastrointestinal: No tenderness, No ascites, No guarding Skin: warm, normal color, No erythema Musculoskeletal: pain with ROM, muscular tenderness, abnormal gait, generalized weakness Neurologic: AAOx3 Psychiatric: interacting appropriately, not anxious, not encephalopathic, thought process linear ICD10 Worksheet Patient Problems: Problems Problem Status Onset Lumbar compression fracture Acute Left hip pain Acute
[2016-10-04] MEDS: traMADol 50 MG TAB PO PRN (11:58)
[2016-10-04] MEDS ORDERED: PATCH REMOVAL 1 EA PATCH TD SCH (21:00)
[2016-10-04] MEDS: oxyCODONE IR 5 MG TAB PO PRN (21:07)
[2016-10-04] MEDS: MELATONIN 3 MG TAB PO SCH (21:08)
[2016-10-04] MEDS: ASPIRIN EC 81 MG TAB PO SCH (21:09)
[2016-10-04 23:42] VITALS: RESP 16
[2016-10-05] MEDS: traMADol 50 MG TAB PO PRN (05:28)
[2016-10-05 07:38] VITALS: PULSE 68; TEMP 97.2; O2SAT 94
--- NOTE | 2016-10-05 08:44 | PDIAF ---
- Diagnosis Diagnosis: L4 compression fx Code Status: Full Code - Medication Management Discharge Medications: Medications to Continue on Transfer Ascorbic Acid [Vitamin C 500 mg (*)] 500 mg PO DAILY 10/01/16 [Last Taken Unknown] Aspirin EC [Aspirin EC 81 mg (*)] 81 mg PO HS 10/01/16 [Last Taken 09/30/16] Cholecalciferol Vit D3 [Vitamin D3 (*)] 1,000 units PO BID 10/01/16 [Last Taken 10/01/16] Clopidogrel Bisulfate [Plavix (*)] 75 mg PO DAILY 10/01/16 [Last Taken 09/29/16] Cyanocobalamin [Vitamin B12 (*)] 100 mcg PO Q2D 10/01/16 [Last Taken Unknown] Fluticasone Nasal [Flonase Nasal [place]] 2 sprays EACHNARE DAILY 10/01/16 [Last Taken 10/01/16] Furosemide [Lasix 20 MG (*)] 20 mg PO DAILY PRN 10/01/16 [Last Taken 09/24/16] Herbals/Supplements -Info Only 1 ea PO DAILY 10/01/16 [Last Taken Unknown] Loratadine [Claritin 10 mg] 10 mg PO DAILY 10/01/16 [Last Taken 09/30/16] Melatonin [Melatonin 1 mg] 1 mg PO HS 10/01/16 [Last Taken 09/30/16] Olmesartan Medoxomil [Benicar 20 mg (*)] 20 mg PO DAILY 10/01/16 [Last Taken ] Sertraline HCl [Zoloft 100mg (*)] 150 mg PO DAILY 10/01/16 [Last Taken 10/01/16] buPROPion SR [Wellbutrin 100mg SR (*)] 100 mg PO BID 10/01/16 [Last Taken ] Acetaminophen [Tylenol 325mg (*)] 650 mg PO Q4HRS PRN #0 tab 10/05/16 [Last Taken Unknown] Lidocaine 5% [Lidoderm 5% Patch (*)] 2 ea TD DAILY #0 patch 10/05/16 [Last Taken Unknown] Ondansetron Odt [Zofran Odt 4 mg (*)] 4 mg PO Q4HRS PRN #0 tab 10/05/16 [Last Taken Unknown] Patch Removal 1 ea TD DAILY21 #0 patch 10/05/16 [Last Taken Unknown] Sennosides/Docusate Sodium [Senokot-S] 1 - 2 tab PO BID #0 tab 10/05/16 [Last Taken Unknown] oxyCODONE IR [Oxycodone Ir (*)] 5 - 10 mg PO Q3HRS PRN #0 tab 10/05/16 [Last Taken Unknown] traMADol [Ultram 50 mg (*)] 50 mg PO Q6HRS PRN #0 tab 10/05/16 [Last Taken Unknown] Discharge Medications: Refer to the Discharge Home Medication list for PRN reason. PICC Care - Routine: N/A - Orders Services needed: Registered Nurse, Physical Therapy, Occupational Therapy Diet Recommendation: no restrictions on diet - Follow Up Care Current Providers and Referrals: Noreen Dorman MD [Primary Care Provider] -
[2016-10-05] MEDS: LIDOCAINE 5% 1 EA PATCH TD SCH (09:00)
[2016-10-05] MEDS: ENOXAPARIN 40 MG/0.4 ML SYR SC SCH (09:01)
[2016-10-05] MEDS: SERTRALINE HCL 100 MG TAB PO SCH (09:01)
[2016-10-05] MEDS: buPROPion SR 100 MG TAB PO SCH (09:02)
[2016-10-05] MEDS: CETIRIZINE 10 MG TAB PO SCH (09:02)
[2016-10-05] MEDS: CYANO/VITAMIN B12 100 MCG TAB PO SCH (09:02)
[2016-10-05] MEDS: CHOLECALCIFEROL VIT D3 1,000 UNITS TAB PO SCH (09:02)
[2016-10-05] MEDS: OLMESARTAN MEDOXOMIL 20 MG TAB PO SCH (09:02)
[2016-10-05] MEDS: CLOPIDOGREL BISULFATE 75 MG TAB PO SCH (09:02)
[2016-10-05] MEDS: FLUTICASONE NASAL 120 SPRAYS/16 GM MDI EACHNARE SCH (09:02)
[2016-10-05] MEDS: ASCORBIC ACID 500 MG TAB PO SCH (09:02)
[2016-10-05 09:05] VITALS: BP 131/64
[2016-10-05] MEDS: SENNOSIDES/DOCUSATE SODIUM TAB PO SCH (09:12)
--- NOTE | 2016-10-05 14:19 | GDS ---
[f rep st] DISCHARGE SUMMARY DISCHARGE DIAGNOSES: 1. L4 compression fracture. 2. Hip pain. 3. Lateral chest pain. 4. Gait instability with multiple falls. 5. Diabetes. 6. Thrombocytopenia. CONSULTATIONS: 1. Oncology. 2. Neurosurgery. STUDIES AND PROCEDURES DONE: CAT scan of the cervical spine as well as the lumbar spine and MRI of the lumbar spine. PHYSICAL EXAMINATION: GENERAL: The patient is alert. VITAL SIGNS: Afebrile at 36.2, pulse 68, re spiratory rate 16. Blood pressure is 132/61. She is saturating 94% on 1 L. I have seen and evalua betty the patient on the day of discharge. HOSPITAL COURSE: The patient is a 76-year-old female who suffered a mechanical fall. She was broug ht to the emergency room and evaluated. She was diagnosed with: 1. L4 compression fracture. During this hospitalization, she continued to wear her previously pres cribed lumbar brace. She was tolerating this well. She did receive a consultation from Neurosurger y, who recommended proceeding with conservative management with her brace. The patient is in agree ent with this plan and will continue her brace in the outpatient setting as well as follow up with N eurosurgery in the future. 2. Hip pain. This is secondary to the patient's recent fall and is improving. 3. Lateral chest pain. This has resolved. 4. Gait instability with frequent falls. The patient is recommended to be discharged to skilled [facility] facility rehabilitation for further management and strengthening. She did receive evaluation from Physical Therapy as well as Occupational Therapy during this hospital course. 5. Diabetes. This is diet controlled. 6. Disposition. The patient will be discharged to long term facility rehabilitation for furt her therapies and strengthening. Followup will be with her outpatient oncologist, as well as Dr. Carlene solis of neurosurgery and her primary care physician, Dr. Noreen Dorman. DISCHARGE MEDICATIONS: Please refer to EMR form. I have not adjusted the patient's previously pres cribed home medications, to the best of my knowledge, with the exception of pain management medicati ons. I spent greater than 35 minutes in the care, coordination, and management of this patient's disposit ion. /[id number]/MODL
--- NOTE | 2016-10-10 07:42 | PQFORM ---
PHYSICIAN QUERY FORM Needs Your Response This query form is being sent to you to assure this patient record is coded properly. Please respond to the question below: INSTRUCTIONAL MANAGER QUESTION: Baylee, On the last progress note on 10/04, you stated a 'likely osteoporotic lumbar spine'. After study, can this L4 compression fracture be further defined as?: x____ Osteoporotic compression fracture Compression fracture due to trauma Unspecified compression fracture Other Thank you for the clarification, Narda Montejo CALL CENTER AGENT HIM Coding [phone] INSTRUCTIONS FOR RESPONSE: Answer question by clicking on the "Edit Document" button. Move cursor to area below the stars. When complete, hit "Save." Click on the "Sign" button, then click "Sign" again. Type in your PIN and hit "Enter." MTDD
== END 2016-10-05 10:59 | DRG 544 ==
LOC: EDUNIT# → INTOOBSV 16:49 → F3N 18:11 → OBSVTOIN 10-02 14:31
PROVIDERS: ADMIT Internal Medicine; ATTEND Internal Medicine
DX: M80.08XA Age-related osteoporosis with current pathological fracture, vertebra(e), initial encounter for fracture (principal); E11.9 Type 2 diabetes mellitus without complications; I25.10 Atherosclerotic heart disease of native coronary artery without angina pectoris; R07.89 Other chest pain; D69.6 Thrombocytopenia, unspecified; Z85.43 Personal history of malignant neoplasm of ovary; Z79.02 Long term (current) use of antithrombotics/antiplatelets
CPT/HCPCS: 86334-90; 92523-GN; 97116-GP; 97161-GP; 97165-GO; 97530-GP; 97535-GO; A9585; G0378; G8978-GP-CJ; G8979-GP-CI; G8987-GO-CI; G8988-GO-CI; G9168-GO-CI; G9169-GN-CI; G9170-GN-CI; J1650

== ENCOUNTER 2017-10-21 20:44 | Observation (INO) | payer OTHER, MEDICARE ==
[2017-10-21] MEDS ORDERED: ONDANSETRON 4 MG/2 ML VIAL IVP ONE (21:01)
[2017-10-21] MEDS ORDERED: MECLIZINE HCL 25 MG TAB PO ONE (21:12)
--- NOTE | 2017-10-21 21:14 | EDPHY ---
H & P Stated Complaint: increased weakness, dizziness, vertigo, nausea Time Seen by Provider: 10/21/17 20:51 HPI/ROS: CHIEF COMPLAINT: Nausea, vertigo, weakness HISTORY OF PRESENT ILLNESS: The patient presents the ED with a 1 day history of nausea, vertigo, vomiting and weakness. The patient denies any fever, cough or congestion. The patient denies any abdominal pain, fall or history of trauma. She denies dysuria. The patient does have a remote history of vertigo. She denies any recent surgery or hospitalization. REVIEW OF SYSTEMS: A comprehensive 10 point review of systems is otherwise negative aside from elements mentioned in the history of present illness. Source: Patient Exam Limitations: No limitations - Medical/Surgical History Hx Asthma: No Hx Chronic Respiratory Disease: No Hx Diabetes: Yes Hx Cardiac Disease: Yes Hx Renal Disease: No Hx Cirrhosis: No Hx Alcoholism: No Hx HIV/AIDS: No Hx Splenectomy or Spleen Trauma: No Other PMH: DM, cardiac stents x2, falls, htn - Social History Smoking Status: Never smoked - Physical Exam Exam: General Appearance: Alert, no distress Eyes: Pupils equal and round no pallor or injection ENT, Mouth: Mucous membranes moist Respiratory: There are no retractions, lungs are clear to auscultation Cardiovascular: Regular rate and rhythm Gastrointestinal: Abdomen is soft and nontender, no masses, bowel sounds normal Neurological: A&O, normal motor function, normal sensory exam, normal cranial nerves, mild horizontal nystagmus noted with rightward gaze Skin: Warm and dry, no rashes Musculoskeletal: Neck is supple nontender Extremities: symmetrical, full range of motion Constitutional: Initial Vital Signs Temperature (C) 37.2 C 10/21/17 20:55 Heart Rate 93 10/21/17 20:55 Respiratory Rate 20 10/21/17 20:55 Blood Pressure 169/86 H 10/21/17 20:55 O2 Sat (%) 92 10/21/17 20:55 O2 Delivery Mode Room Air Allergies/Adverse Reactions: amoxicillin trihydrate [From Augmentin] Allergy (Intermediate, Verified 20:53) fluoxetine Allergy (Intermediate, Verified 10/21/17 20:53) Hives hydrocodone bitartrate [From Vicodin] Allergy (Intermediate, Verified 10/21/17 20:53) potassium clavula *RETIRED-03/25/12 [From Augmentin] Allergy (Intermediate, Verified 10/21/17 20:53) Umeckib-Bgj-Elm Reductase Inhibitor Allergy (Verified 10/21/17 20:53) Home Medications: Medication Instructions Recorded Lasix 10/21/17 Multivitamin (*) 10/21/17 Wellbutrin Xl 10/21/17 Zoloft 25mg (*) 10/21/17 Medical Decision Making ED Course/Re-evaluation: The patient presents the emergency department via ambulance with symptoms consistent with peripheral vertigo. The patient received IV Zofran and oral meclizine. She received 1 L of normal saline. I re-evaluated the patient at 10:00 p.m.. She initially felt better, however developed recurrent symptoms of vertigo and recurrent vomiting. Additional laboratory studies are sent including lipase and LFTs. I do find the patient's abdominal examination to be benign. Given the patient's age and ongoing vomiting she will be admitted to the hospital for observation this evening. Consultation was made with Dr. Lopez at 10:10 pm who will admit the patient. Differential Diagnosis: Differential diagnosis considered includes vertigo, dehydration, metabolic abnormality, pancreatitis - Data Points Laboratory Results: Laboratory Results 10/21/17 21:05 10/21/17 10/21/17 10/21/17 21:25 21:05 21:05 WBC Pending RBC Pending Hgb Pending Hct Pending MCV Pending MCH Pending MCHC Pending RDW Pending Plt Count Pending MPV Pending Neut % (Auto) Pending Lymph % (Auto) Pending Dickson % (Auto) Pending Eos % (Auto) Pending Baso % (Auto) Pending Nucleat RBC Rel Count Pending Absolute Neuts (auto) Pending Absolute Lymphs (auto) Pending Absolute Monos (auto) Pending Absolute Eos (auto) Pending Absolute Basos (auto) Pending Absolute Nucleated RBC Pending Immature Gran % Pending Immature Gran # Pending Sodium 136 mEq/L mEq/L (135-145) Potassium 5.0 mEq/L mEq/L (3.5-5.2) Chloride 98 mEq/L mEq/L (97-110) Carbon Dioxide 27 mEq/l mEq/l (22-31) Anion Gap 11 mEq/L mEq/L (8-16) BUN 21 mg/dL mg/dL (7-23) Creatinine 0.9 mg/dL mg/dL (0.6-1.0) Estimated GFR > 60 Glucose 243 mg/dL H mg/dL (70-100) Calcium 8.8 mg/dL mg/dL (8.5-10.4) Total Bilirubin Pending Conjugated Bilirubin Pending Unconjugated Bilirubin Pending AST Pending ALT Pending Alkaline Phosphatase Pending Total Protein Pending Albumin Pending Lipase Pending Medications Given: Discontinued Medications Meclizine HCl (Meclizine Hcl) 25 mg PO EDNOW ONE Stop: 10/21/17 21:13 Last Admin: 10/21/17 21:17 Dose: 25 mg Ondansetron HCl (Zofran) 4 mg IVP EDNOW ONE Stop: 10/21/17 21:02 Last Admin: 10/21/17 21:17 Dose: 4 mg Departure - Departure Disposition: [facility] Inpatient Acute Clinical Impression: Vertigo, Vomiting Condition: Good
[2017-10-21] MEDS ORDERED: ACETAMINOPHEN 325 MG TAB PO PRN (22:18)
[2017-10-21] MEDS ORDERED: ONDANSETRON 4 MG/2 ML VIAL IVP PRN (22:18)
[2017-10-21] MEDS ORDERED: ONDANSETRON DISINTEGRATING 4 MG TAB PO PRN (22:18)
[2017-10-21] MEDS ORDERED: PROMETHAZINE HCL 25 MG/ML INJ IVP PRN (22:18)
[2017-10-21] MEDS ORDERED: MECLIZINE HCL 12.5 MG TAB PO PRN (22:19)
[2017-10-21] MEDS ORDERED: D50W 25 GM/50 ML VIAL IVP PRN (23:04)
--- NOTE | 2017-10-21 23:54 | PDGENHP ---
History and Physical - Chief Complaint Vertigo - History of Present Illness 77 yo F w/ hx of vertigo, gait instability, and DM presents with complaints of vertigo. Patient states she started having difficulty rising from a seated position yesterday. She states this was due to vertigo spells accompanied by nausea. She states she had similar episodes 6 years ago but this had improved since. Of note, she states she had a cold for the last 2-3 weeks. Her cold symptoms have now improved but have been replaced by vertig and nausea. She denies any other acute complaints. History Information - Allergies/Home Medication List Allergies/Adverse Reactions: amoxicillin trihydrate [From Augmentin] Allergy (Intermediate, Verified 20:53) fluoxetine Allergy (Intermediate, Verified 10/21/17 20:53) Hives hydrocodone bitartrate [From Vicodin] Allergy (Intermediate, Verified 10/21/17 20:53) potassium clavula *RETIRED-03/25/12 [From Augmentin] Allergy (Intermediate, Verified 10/21/17 20:53) Kxtwlfs-Baj-Gny Reductase Inhibitor Allergy (Verified 10/21/17 20:53) Home Medications: Calcium Carbonate [Oyster Shell Calcium 500 mg (*)] 500 mg PO HS 10/21/17 [Last Taken 10/20/17] Cholecalciferol Vit D3 [Vitamin D3 (*)] 1,000 units PO BID 10/21/17 [Last Taken 10/21/17] Cyanocobalamin (Vitamin B-12) [B-12] 1,000 mcg PO DAILY@11 10/21/17 [Last Taken 10/21/17] Fluticasone Nasal [Flonase Nasal [place] (RX)] 1 - 2 sprays EACHNARE DAILY PRN 03/02 [Last Taken Unknown] Lasix 1.5 tab PO BID 10/21/17 [Last Taken Unknown] Multivitamins [Multivitamin (*)] 1 each PO HS 10/21/17 [Last Taken 10/20/17] [place]-3 Fatty Acids [Fish Oil 1000 mg (*)] 1,000 mg PO TID 10/21/17 [Last Taken 10/21/17] Sertraline HCl [Zoloft 100mg (*)] 100 mg PO DAILY 10/21/17 [Last Taken 10/21/17] Sertraline HCl [Zoloft 50mg (*)] 50 mg PO HS 10/21/17 [Last Taken 10/20/17] buPROPion SR [Wellbutrin 150mg SR (*)] 150 mg PO BID 10/21/17 [Last Taken ] I have personally reviewed and updated: family history, medical history - Past Medical History diabetes type 2 Additional medical history: Vertigo. Gait instability. Compression fracture - Family History Positive for: CAD, stroke - Social History Smoking Status: Never smoked Review of Systems Review of Systems: ROS: 10pt was reviewed & negative except for what was stated in HPI & below Physical Exam Physical Exam: Temp Pulse Resp BP Pulse Ox 37.7 C 101 H 16 151/83 H 96 10/21/17 23:15 10/21/17 23:15 10/21/17 23:15 10/21/17 23:15 10/21/17 23:15 O2 (L/minute) 4 Constitutional: no apparent distress, not in pain Eyes: PERRL, EOMI Ears, Nose, Mouth, Throat: no oral mucosal ulcers Cardiovascular: regular rate and rhythym, no murmur, rub, or gallop Respiratory: no respiratory distress, clear to auscultation Gastrointestinal: normoactive bowel sounds, soft, non-tender abdomen Skin: warm, normal color Musculoskeletal: full muscle strength, no muscle tenderness Neurologic: AAOx3, CN II-XII Intact (Finger to nose and heel to palma inctact bilaterally) Psychiatric: interacting appropriately, not anxious Lab Data & Imaging Review 10/21/17 22:53 10/21/17 21:05 WBC 7.09 10^3/uL (3.80-9.50) 10/21/17 22:53 RBC 5.17 10^6/uL (4.18-5.33) 10/21/17 22:53 Hgb 14.2 g/dL (12.6-16.3) 10/21/17 22:53 Hct 43.0 % (38.0-47.0) 10/21/17 22:53 MCV 83.2 fL (81.5-99.8) 10/21/17 22:53 MCH 27.5 pg (27.9-34.1) L 10/21/17 22:53 MCHC 33.0 g/dL (32.4-36.7) 10/21/17 22:53 RDW 14.0 % (11.5-15.2) 10/21/17 22:53 Plt Count 90 10^3/uL (150-400) L 10/21/17 22:53 MPV 9.6 fL (8.7-11.7) 10/21/17 22:53 Neut % (Auto) 89.5 % (39.3-74.2) H 10/21/17 22:53 Lymph % (Auto) 3.8 % (15.0-45.0) L 10/21/17 22:53 [place] % (Auto) 5.6 % (4.5-13.0) 10/21/17 22:53 Eos % (Auto) 0.4 % (0.6-7.6) L 10/21/17 22:53 Baso % (Auto) 0.3 % (0.3-1.7) 10/21/17 22:53 Nucleat RBC Rel Count 0.0 % (0.0-0.2) 10/21/17 22:53 Absolute Neuts (auto) 6.34 10^3/uL (1.70-6.50) 10/21/17 22:53 Absolute Lymphs (auto) 0.27 10^3/uL (1.00-3.00) L 10/21/17 22:53 Absolute Monos (auto) 0.40 10^3/uL (0.30-0.80) 10/21/17 22:53 Absolute Eos (auto) 0.03 10^3/uL (0.03-0.40) 10/21/17 22:53 Absolute Basos (auto) 0.02 10^3/uL (0.02-0.10) 10/21/17 22:53 Absolute Nucleated RBC 0.00 10^3/uL (0-0.01) 10/21/17 22:53 Immature Gran % 0.4 % (0.0-1.1) 10/21/17 22:53 Immature Gran # 0.03 10^3/uL (0-0.10) 10/21/17 22:53 Sodium 136 mEq/L (135-145) 10/21/17 21:05 Potassium 5.0 mEq/L (3.5-5.2) 10/21/17 21:05 Chloride 98 mEq/L (97-110) 10/21/17 21:05 Carbon Dioxide 27 mEq/l (22-31) 10/21/17 21:05 Anion Gap 11 mEq/L (8-16) 10/21/17 21:05 BUN 21 mg/dL (7-23) 10/21/17 21:05 Creatinine 0.9 mg/dL (0.6-1.0) 10/21/17 21:05 Estimated GFR > 60 10/21/17 21:05 Glucose 243 mg/dL (70-100) H 10/21/17 21:05 Calcium 8.8 mg/dL (8.5-10.4) 10/21/17 21:05 Total Bilirubin 0.7 mg/dL (0.1-1.4) 10/21/17 21:25 Conjugated Bilirubin 0.6 mg/dL (0.0-0.5) H 10/21/17 21:25 Unconjugated Bilirubin 0.1 mg/dL (0.0-1.1) 10/21/17 21:25 AST 37 IU/L (14-46) 10/21/17 21:25 ALT 42 IU/L (9-52) 10/21/17 21:25 Alkaline Phosphatase 102 IU/L (38-126) 10/21/17 21:25 Total Protein 6.7 g/dL (6.3-8.2) 10/21/17 21:25 Albumin 4.0 g/dL (3.5-5.0) 10/21/17 21:25 Lipase 72 IU/L (23-300) 10/21/17 21:25 Assessment & Plan Assessment: 77 yo F w/ hx of vertigo, gait instability, and DM presents with vertigo spells. Plan: 1. Vertigo - Symptoms present x2 days and accompanied by nausea. Neurologic exam WNL on my examination. Patient states she had similar symptoms 6 years ago but not much since. She has had cold symptoms for 2-3 weeks and this may be contributing. - 500 mL bolus in case dehydration is playing a role - Anti-emetics and meclizine PRN - PT/OT evaluations 2. T2DM - Patient not on therapy for this, but BG >200 on admission. It is possible hyperglycemia is exacerbating above symptoms. - SSI while inpatient, consider starting therapy on discharge 3. Depression - Continue home medications 4. Thrombocytopenia - Plts 90 on admission with unclear etiology, this is mildly decreased from previous, low baseline. - Monitor CBC - Avoid blood thinners Diet - Regular Code - Full Ppx - SCDs Dispo - Admit under observation status
[2017-10-21] MEDS ORDERED: NS 500 ML IV ONE (23:57)
[2017-10-22 05:21] LABS: PLATELET COUNT 101 10^3/uL (150-400)
[2017-10-22] MEDS: INSULIN LISPRO 100 UNIT/ML SC SCH ×2 (08:57→12:14)
[2017-10-22] MEDS ORDERED: ENOXAPARIN 40 MG/0.4 ML SYR SC SCH (09:00)
[2017-10-22] MEDS ORDERED: SERTRALINE HCL 100 MG TAB PO SCH (09:00)
--- NOTE | 2017-10-22 09:52 | ASMTCASEMG ---
Living Arrangements What is your living Answers: Alone arrangement? Who do you live with? Type Of Residence What kind of residence do Answers: Intermediate you live in? Type of Residence Facility Name Notes: [facility] Discharge Plan Comments Coordination Status Comments Notes: Pt is a 77 y/o female admitted for vomiting and vertigo. Therapies have been ordered and awaiting recommendations. Needs are TBD at this time. CM to follow. Plan: TBD Date Signed: 10/22/2017 09:51 AM Electronically Signed By:CAROLE Coles
[2017-10-22] MEDS ORDERED: FLUTICASONE NASAL 120 SPRAYS/16 GM MDI EACHNARE PRN (10:45)
[2017-10-22] MEDS ORDERED: buPROPion SR 150 MG TAB PO SCH (10:45)
[2017-10-22] MEDS ORDERED: CHOLECALCIFEROL VIT D3 1,000 UNITS TAB PO SCH (10:45)
[2017-10-22] MEDS ORDERED: NON-FORMULARY NEW DRUG (Cyanocobalamin (Vitamin B-12) [B-12] 1,000 MCG) PO SCH (11:00)
[2017-10-22] MEDS ORDERED: CYANO/VITAMIN B12 1000 MCG TAB PO SCH (11:00)
[2017-10-22] MEDS ORDERED: buPROPion SR 100 MG TAB PO SCH ×2 (11:45→12:45)
[2017-10-22] MEDS: SERTRALINE HCL 100 MG TAB PO SCH ×2 (12:14→12:40)
--- NOTE | 2017-10-22 14:15 | HOSPPROG ---
Hospitalist Progress Note Assessment/Plan: 77 yo F w vertigo vertigo: resolved peripheral hypoxemia: crackles noted minimal 02 requirement check cxr and ambulatory sat depression: continue meds dispo: home today following eval for hypoxemia Objective: Vital Signs Temp Pulse Resp BP Pulse Ox 36.6 C 80 16 127/62 H 89 L 10/22/17 07:26 10/22/17 07:26 10/22/17 07:26 10/22/17 13:00 10/22/17 13:00 Laboratory Results 10/22/17 04:24 10/22/17 04:24 10/21/17 10/22/17 10/23/17 05:59 05:59 05:59 Intake Total 50 Output Total 200 Balance -150 - Physical Exam Constitutional: no apparent distress, appears nourished Eyes: PERRL, anicteric sclera Ears, Nose, Mouth, Throat: moist mucous membranes, hearing normal Cardiovascular: regular rate and rhythym, no murmur, rub, or gallop, systolic murmur Respiratory: no respiratory distress, rhonchi, other (crackles at bases) Gastrointestinal: normoactive bowel sounds, soft, non-tender abdomen Genitourinary: no bladder fullness, No mackey in urethra Skin: warm, normal color Musculoskeletal: full muscle strength, normal joint ROM Neurologic: AAOx3 Psychiatric: interacting appropriately ICD10 Worksheet Patient Problems: Problems Problem Status Onset Vertigo Acute Vomiting Acute Left hip pain Acute Lumbar compression fracture Acute
[2017-10-22] MEDS ORDERED: OMEGA-3 FATTY ACIDS 1,000 MG CAP PO SCH (16:00)
--- NOTE | 2017-10-22 16:42 | GDS ---
[f rep st] DISCHARGE SUMMARY DISCHARGE DIAGNOSES: 1. Vertigo, with a previous history of vertigo. 2. Borderline hypoxemia, 89% on room air with ambulation. 3. Gait instability. 4. Diabetes. HOSPITAL COURSE: Please see admission history and physical by Dr. José Miguel Lopez. The patient presented with vertigo. She received Phenergan and Zofran, with improvement in her symptoms. She w as doing well today and therefore discharged back to the [place] where she lives. /[id number]/MODL
[2017-10-22 16:48] VITALS: BP 113/65
[2017-10-22] MEDS ORDERED: SERTRALINE HCL 50 MG TAB PO SCH (21:00)
[2017-10-22] MEDS ORDERED: CALCIUM CARBONATE 500 MG TAB PO SCH (21:00)
[2017-10-22] MEDS ORDERED: MULTIVITAMINS 1 EACH TAB PO SCH (21:00)
--- NOTE | 2017-10-23 08:58 | PDIAF ---
- Diagnosis Diagnosis: vertigo Code Status: Full Code - Medication Management Discharge Medications: Medications to Continue on Transfer Calcium Carbonate [Oyster Shell Calcium 500 mg (*)] 500 mg PO HS 10/21/17 [Last Taken 10/20/17] Cholecalciferol Vit D3 [Vitamin D3 (*)] 1,000 units PO BID 10/21/17 [Last Taken 10/21/17] Cyanocobalamin (Vitamin B-12) [B-12] 1,000 mcg PO DAILY@11 10/21/17 [Last Taken 10/21/17] Fluticasone Nasal [Flonase Nasal [place]] 1 - 2 sprays EACHNARE DAILY PRN [Last Taken Unknown] Furosemide [Lasix 20 MG (*)] 30 mg PO BID 10/21/17 [Last Taken Unknown] Multivitamins [Multivitamin (*)] 1 each PO HS 10/21/17 [Last Taken 10/20/17] [place]-3 Fatty Acids [Fish Oil 1000 mg (*)] 1,000 mg PO TID 10/21/17 [Last Taken 10/21/17] Sertraline HCl [Zoloft 100mg (*)] 150 mg PO DAILY 10/21/17 [Last Taken 10/21/17] buPROPion SR [Wellbutrin 100mg SR (*)] 100 mg PO BID 10/22/17 [Last Taken Unknown] Discharge Medications: Refer to the Discharge Home Medication list for PRN reason. - Orders Services needed: Home Care, Physical Therapy Home Care Face to Face: I certify that this patient was under my care and that I had the required [id number] encounter meeting the encounter requirements on the discharge day. My findings support the fact that the patient is homebound as defined in Home Care Face to Face Continued: CMS Chapter 7 Medicare Benefits Manual 30.1.1 , The condition of the patient is such that there exists a normal inability to leave home and consequently, leaving home would require a considerable and taxing effort. - Follow Up Care Current Providers and Referrals: Patient,NotPresent [Unknown] - As per Instructions
--- NOTE | 2017-10-23 09:19 | ASMTCMCOM ---
CM Note CM Note Notes: DC orders sent to Jd HUNTER. CM available for changes. Plan: Jd HUNTER, PT Date Signed: 10/23/2017 09:18 AM Electronically Signed By:CAROLE Coles
--- NOTE | 2017-10-23 09:19 | ASDISCHSUM ---
Discharge Information Plan Status:Home with Home Health Medically Cleared to Leave:10/22/2017 Discharge Date:10/22/2017 05:19 PM D/C Disposition: ADT D/C Disposition:[id number] Projected Discharge Date:10/22/2017 11:00 AM Transportation at D/C: Discharge Delay Reason: Follow-Up Date:10/22/2017 11:00 AM Discharge Slot: Final Diagnosis: Placement Information Referral Type:*Home Health Care Services Referral ID:[id number] Provider Name:[facility] Address 1:[address] Address 2: City:[place] Selection Factors: State:[place] Patient Contact Information Contact Name:DANIEL Relationship:Other Address:[address] City:[place] Alternate Phone: State/Zip Code:[place] [address] Email: Financial Information Financial Class:Medicare Primary Plan Desc:MEDICARE OUTPATIENT Primary Plan Number:[id number] Secondary Plan Desc:[employer]/MDR SUPPLEMENT Secondary Plan Number:[id number] Assessment Information [facility] Initial CM Assessment Living Arrangements What is your living Answers: Alone arrangement? Who do you live with? Type Of Residence What kind of residence do Answers: Group Home you live in? Type of Residence Facility Name Notes: [facility] Discharge Plan Comments Coordination Status Comments Notes: Pt is a 77 y/o female admitted for vomiting and vertigo. Therapies have been ordered and awaiting recommendations. Needs are TBD at this time. CM to follow. Plan: TBD Date Signed: 10/22/2017 09:51 AM Electronically Signed By:CAROLE Coles Case Management Discharge Plan Note Case Management Discharge Discharge Order Complete? Answers: Yes Patient to Obtain Answers: via Family Medications Transportation Arranged Answers: Family/Friends EMTALA Complete Answers: No Case Management Transport Answers: No Form Complete Faxed Final Orders Answers: No Agency/Facility Transfer Answers: No Report Printed & Faxed to Receiving Agency Family Notified Answers: No Discharge Comments Notes: Pt is being discharged today. PT is recommending HC. CM met w/ pt for dispo planning. Pt is interested in having HC through [place]. CM notified Dr. Arzate of this. Referral sent. Once d/c orders become available, CM will send it to [place]. CM to follow. Plan: FLORENTINO Miles Date Signed: 10/22/2017 05:01 PM Electronically Signed By:CAROLE Coles [facility] Progress Note CM Note CM Note Notes: DC orders sent to Jd . available for changes. Plan: Jd HUNTER PT Date Signed: 10/23/2017 09:18 AM Electronically Signed By:CAROLE Coles Intervention Information
== END 2017-10-22 17:19 | disposition home health service (06) ==
LOC: EDUNIT# → F3E 23:10
PROVIDERS: ADMIT Student in an Organized Health Care Education/Training Program; ATTEND Internal Medicine
DX: R11.2 Nausea with vomiting, unspecified (principal); H81.399 Other peripheral vertigo, unspecified ear; R29.6 Repeated falls; E11.9 Type 2 diabetes mellitus without complications; I10 Essential (primary) hypertension; F32.9 Major depressive disorder, single episode, unspecified; Z95.9 Presence of cardiac and vascular implant and graft, unspecified
CPT/HCPCS: 71046; 96374; 97116; 97161; 99285; G0378; G8978; G8979; J2405; J2550

== ENCOUNTER → 2018-01-02 | Outpatient (CLI) | payer OTHER, MEDICARE | LOC: FIMAGING 14:46 | PROVIDERS: ATTEND Internal Medicine | DX: M25.552 Pain in left hip (principal); M54.32 Sciatica, left side ==

== ENCOUNTER 2018-02-07 12:22 | Inpatient (IN) | payer OTHER, MEDICARE ==
--- NOTE | 2018-02-07 12:22 | EDPHY ---
H & P Time Seen by Provider: 02/07/18 12:21 HPI/ROS: CHIEF COMPLAINT: Right hip pain HISTORY OF PRESENT ILLNESS: Patient fell just prior to arrival rearranging her cabinets. Immediately had right hip pain which is moderate at rest and severe with any motion or weight-bearing. Unable to bear weight. Brought in by EMS. Denies associated headache or neck pain or loss of consciousness or weakness or numbness in the right leg. NPO since 0 yesterday. REVIEW OF SYSTEMS: Eye: no change in vision ENT: no sore throat Cardiac: no chest pain or syncope Pulmonary: no cough or SOB Abdomen: no vomiting, diarrhea, abdominal pain Musculoskeletal: No back or neck pain Skin: No laceration Neuro: no headache Constitutional: no fever : no urinary symptoms A comprehensive 10 point review of systems is otherwise negative aside from elements mentioned in the history of present illness. PAST MEDICAL HISTORY: Includes hypertension Social history: Lives at the [place], no local family General Appearance: Alert and conversant, cooperative. Eyes: No scleral icterus. ENT, Mouth: Normal mucous membranes. Respiratory: Normal respiratory effort, breath sounds equal, lungs are clear to auscultation. Cardiovascular: Regular rate and rhythm. Normal pulses in both feet. Gastrointestinal: Abdomen is soft and non tender. Neurological: Alert, face symmetric, normal motor and sensory in extremities. Skin: Warm and dry, no rashes. Musculoskeletal: Pelvis is stable, right hip pain on rotation or axial loading , normal right knee lower leg ankle and foot. Psychiatric: Not agitated. Emergency Department course/MDM: Initial oxygen saturation noted to be 84% but the patient does not have shortness of breath or any respiratory complaints.. Chest x-ray, right hip x- ray, admission hospitalist service with orthopedic consultation. 1252: X-ray showed displaced right closed femoral neck fracture. Declined pain medication. Constitutional: Initial Vital Signs Temperature (C) 36.7 C 02/07/18 12:31 Heart Rate 77 02/07/18 12:31 Respiratory Rate 16 02/07/18 12:31 Blood Pressure 172/118 H 02/07/18 12:31 O2 Sat (%) 91 L 02/07/18 12:31 O2 Delivery Mode Room Air Allergies/Adverse Reactions: amoxicillin trihydrate [From Augmentin] Allergy (Intermediate, Verified 12:27) fluoxetine Allergy (Intermediate, Verified 02/07/18 12:27) Hives hydrocodone bitartrate [From Vicodin] Allergy (Intermediate, Verified 02/07/18 12:27) potassium clavula *RETIRED-03/25/12 [From Augmentin] Allergy (Intermediate, Verified 02/07/18 12:27) Xspphpy-Bkz-Clv Reductase Inhibitor [Gfwjocr-Xgi-Oku Reductase Inhibitors] Allergy (Unknown, Unverified 02/07/18 12:29) amoxicillin trihydrate Allergy (Unknown, Uncoded 02/07/18 12:27) hydrocodone bitartrate Allergy (Unknown, Uncoded 02/07/18 12:27) potassium clavula *RETIRED-03/25/12 Allergy (Unknown, Uncoded 02/07/18 12:27) Home Medications: Medication Instructions Recorded Cholecalciferol Vit D3 [Vitamin D3 1,000 units PO BID 10/21/17 (*)] Cyanocobalamin (Vitamin B-12) 1,000 mcg PO DAILY@11 10/21/17 [B-12] Fluticasone Nasal [Flonase Nasal 1 - 2 sprays EACHNARE DAILY PRN 10/21/17 [place]] [place]-3 Fatty Acids [Fish Oil 1000 1,000 mg PO TID 10/21/17 mg (*)] Sertraline HCl [Zoloft 100mg (*)] 150 mg PO DAILY 10/21/17 buPROPion SR [Wellbutrin 100mg SR 100 mg PO BID 10/22/17 (*)] Herbals/Supplements -Info Only 1 ea PO DAILY 02/07/18 Medical Decision Making - Diagnostics Imaging Results: Imaging Impressions Hip X-Ray 02/07/18 12:30 Impression: Transverse mid right femoral neck fracture with moderate displacement.. Chest X-Ray 02/07/18 12:31 Impression: Stable negative chest. Elevated right hemidiaphragm. Imaging: I viewed and interpreted images myself Differential Diagnosis: Differential considered including but not limited to hip fracture, pelvis fracture, hip dislocation, hip contusion. Consult/Admit Bed Type: [facility] for Teofilo 1302, Kely will consult 1318 - Data Points Laboratory Results: Laboratory Results 02/07/18 12:29 02/07/18 12:29 02/07/18 02/07/18 02/07/18 12:29 12:29 12:29 WBC 6.19 10^3/uL 10^3/uL (3.80-9.50) RBC 5.29 10^6/uL 10^6/uL (4.18-5.33) Hgb 14.4 g/dL g/dL (12.6-16.3) Hct 44.4 % % (38.0-47.0) MCV 83.9 fL fL (81.5-99.8) MCH 27.2 pg L pg (27.9-34.1) MCHC 32.4 g/dL g/dL (32.4-36.7) RDW 14.9 % % (11.5-15.2) Plt Count 151 10^3/uL 10^3/uL (150-400) MPV 10.0 fL fL (8.7-11.7) Neut % (Auto) 68.3 % % (39.3-74.2) Lymph % (Auto) 22.1 % % (15.0-45.0) [place] % (Auto) 6.6 % % (4.5-13.0) Eos % (Auto) 1.9 % % (0.6-7.6) Baso % (Auto) 0.5 % % (0.3-1.7) Nucleat RBC Rel Count 0.0 % % (0.0-0.2) Absolute Neuts (auto) 4.22 10^3/uL 10^3/uL (1.70-6.50) Absolute Lymphs (auto) 1.37 10^3/uL 10^3/uL (1.00-3.00) Absolute Monos (auto) 0.41 10^3/uL 10^3/uL (0.30-0.80) Absolute Eos (auto) 0.12 10^3/uL 10^3/uL (0.03-0.40) Absolute Basos (auto) 0.03 10^3/uL 10^3/uL (0.02-0.10) Absolute Nucleated RBC 0.00 10^3/uL 10^3/uL (0-0.01) Immature Gran % 0.6 % % (0.0-1.1) Immature Gran # 0.04 10^3/uL 10^3/uL (0.00-0.10) PT 14.1 SEC SEC (12.0-15.0) INR 1.07 (0.83-1.16) APTT 28.1 SEC SEC (23.0-38.0) Sodium 140 mEq/L mEq/L (135-145) Potassium 4.5 mEq/L mEq/L (3.3-5.0) Chloride 104 mEq/L mEq/L (97-110) Carbon Dioxide 27 mEq/l mEq/l (22-31) Anion Gap 9 mEq/L mEq/L (8-16) BUN 28 mg/dL H mg/dL (7-23) Creatinine 1.0 mg/dL mg/dL (0.6-1.0) Estimated GFR 54 Glucose 121 mg/dL H mg/dL (70-100) Calcium 9.2 mg/dL mg/dL (8.5-10.4) Departure - [facility] Clinical Impression: Displaced fracture of right femoral neck Condition: Good
[2018-02-07 12:40] LABS: PLATELET COUNT 151 10^3/uL (150-400)
[2018-02-07 12:51] LABS: INR 1.07 (0.83-1.16); PROTIME(PATIENT) 14.1 SEC (12.0-15.0)
[2018-02-07] MEDS ORDERED: fentaNYL 100 MCG/2 ML INJ ONE ×3 (12:59→19:58)
[2018-02-07] MEDS ORDERED: ONDANSETRON 4 MG/2 ML VIAL IVP PRN ×2 (13:57→18:33)
[2018-02-07] MEDS ORDERED: ACETAMINOPHEN 325 MG TAB PO PRN (13:57)
--- NOTE | 2018-02-07 14:00 | CPEKG ---
Heart Rate: 76 RR Interval: 789 P-R Interval: 192 QRSD Interval: 68 QT Interval: 388 QTC Interval: 437 P [place]: 47 QRS [place]: -17 T Wave [place]: 20 EKG Severity - ABNORMAL ECG - EKG Impression: SINUS RHYTHM EKG Impression: PROBABLE INFERIOR INFARCT, AGE INDETERMINATE Electronically Signed By: Yury Smith 07-Feb-2018 14:03:42
[2018-02-07] MEDS ORDERED: hydrALAZINE 20 MG/ML VIAL IVP PRN (14:02)
--- NOTE | 2018-02-07 14:43 | GHP ---
[f rep st] HISTORY AND PHYSICAL DATE OF ADMISSION: 02/07/2018 CHIEF COMPLAINT: Hip pain. HISTORY: The patient is a 77-year-old female, who was rearranging her cabinets this morning, she had bent down to move something to a far shelf in the back and when she got up she got very dizzy, lost her balance from standing up too quickly, and fell onto her right hip, which immediately developed se anil pain and inability to bear weight. She does have a history of dizziness and chronic balance pro blems for the last 10 years. Her dizziness is actually better than it has been in the past because s he discontinued most of her prescription medications and she feels that led to improvement in her sym ptoms. She denies any chest pain. She has recently been battling sciatica and going to physical the rapy regularly. She has slight worsening shortness of breath with exertion, although she attributes that to her decreased mobility and activity and decreased exercise tolerance there of, due to this sc iatica limiting her functionality. She does have a history of coronary artery disease, and had stent s x2 in 2008 but has done well since then without any recurrence of symptoms. PAST MEDICAL HISTORY: 1. Diabetes type 2. Diet controlled, after an 80 pounds weight loss. 2. Compression fracture. 3. Sciatica. 4. Coronary artery disease, status post stents x2 in 2008. 5. History of obstructive sleep apnea, on CPAP. 6. Endometrial cancer status post hysterectomy. MEDICATIONS: Please see computerized record for a full detailed list. ALLERGIES: Amoxicillin. SOCIAL HISTORY: No smoking. No alcohol. She lives in independent living at the [facility]. She balaji cribes herself as a lesbian, having lost her partner of 50 years in July 2010. She desires DNR. Her kopjr-qz-dxutzfux is her pcikdeg-vy-zna, as she has maintained a relationship with her partner's family beyond her . REVIEW OF SYSTEMS: Complete review of systems obtained. Review of systems negative regarding consti tutional, HEENT, GI, pulmonary, vascular, , hematology, muscular, endocrine, psych, except for posi tives and pertinent negatives as listed in HPI. FAMILY HISTORY: Reviewed, noncontributory to presenting complaints. PHYSICAL EXAMINATION: GENERAL: Well-developed, well-nourished female, in no acute distress. VITAL SIGNS: Temperature is 36.7, pulse 77, blood pressure 172/ , saturating 91% on room air. EY ES: Normal conjunctivae. Pupils react to light. ENT: Normal ears and nose. Hearing intact. Norm al teeth. Oropharynx moist. NECK: Trachea midline. No thyromegaly. CHEST: Normal respiratory eff ort. LUNGS: Clear to auscultation bilaterally. CARDIOVASCULAR: Regular rate and rhythm. No murmu r. No lower extremity edema. ABDOMEN: Soft, nontender. No hepatosplenomegaly. SKIN: Warm, dry, intact with no rash. MUSCULOSKELETAL: No cyanosis or clubbing. Strength 5/5 upper and lower extrem ities. NEUROLOGIC: Cranial nerves intact. Normal sensation to light touch. PSYCH: Alert and orie nted x3. Normal affect. Normal judgement. Normal memory. LABORATORY DATA: White count 6.19, hematocrit 44.4, platelets 151. Sodium 140, potassium 4.5, chlor davis 104, bicarb 27, BUN 28, creatinine 1.0, glucose 121. INR is 1.07. EKG viewed by me. My personal interpretation is normal sinus rhythm. No ST-T wave changes. Chest x -ray is negative. Right hip x-ray shows a femoral neck fracture. This case was discussed with Dr. Fatuma kumar and the patient has been cleared to proceed with surgery. Medical records review. I reviewed medical records including outpatient records from Dr. Noreen suarez, regarding past medical history as discussed above. ASSESSMENT/PLAN: 1. Right hip fracture. I do believe she is medically optimized for what is an urgent surgery. She does have a history of coronary artery disease and had stents x2 in 2008. Her EKG, however, looks ve ry good without any concerning signs of ischemia and she also does not have any recurrence of symptom s that would suggest ischemia as well. 2. Coronary artery disease, status post previous stents. She is statin intolerant and describes mos t prescription medicines as causing dizziness. Hence, her probable minimal regimen for this conditio n. Despite that, however, I do feel she is stable from a cardiovascular standpoint. 3. Hypertension. She goes to physical therapy twice a week for sciatica and blood pressures there a re all with systolic blood pressures in the 120s. I suspect her elevated blood pressure at this time is due to pain and anxiety given her recent events. P.r.n. IV hydralazine can be used for extreme b lood pressure elevations although. 4. Obstructive sleep apnea. She uses CPAP at night, which will be continued. 5. Diabetes, type 2. A few years ago, she had an 80 pounds weight loss and since then has been able to come off all diabetes medications and manage on diet alone. CODE STATUS: DNR. ADMISSION STATUS: Will admit to inpatient. Anticipate greater than 2 midnights required for stabili zation. Given severity. DVT prophylaxis: Lovenox should be initiated postoperatively. /[id number]/MODL
[2018-02-07] MEDS ORDERED: ceFAZolin 2 GM/DEXTROSE 100 ML IV ONE (14:50)
[2018-02-07] MEDS ORDERED: fentaNYL 100 MCG/2 ML INJ IVP ONE (15:14)
[2018-02-07] MEDS ORDERED: BUPIVACAINE 0.25% 30 ML SDV ONE (15:43)
[2018-02-07] MEDS ORDERED: EPINEPHrine 1 MG/ML INJ ONE (15:44)
[2018-02-07] MEDS ORDERED: LR 1,000 ML IV ONE (15:49)
--- NOTE | 2018-02-07 15:54 | GCON ---
[f rep st] CONSULTATION CC: R hip injury. HPI: Patient is a pleasant 77-year-old female who presented to the ED today following a fall to her right hip while rearranging cabinets this morning. She had a sudden loss of balance and dizziness and states she had a ground level fall to her right hip, she however does not recall if she hit her head and does c/o non-specific head pain. Her main complain is right hip groin pain. She is unable to bear weight to the extremity and she does admit loss of height and external rotation to the extremity. No previous history of injury to the extremity. She normally ambulates with a FWW and notes ability to independently ambulate around her living center. Patient has a chronic history of sciatica which she states affects her left side , she also admits a history of left foot digit 1 numbness and tingling which is unchanged since injury. Denies h/o sciatica affecting her right side. Denies any worsening abnormal numbness, tingling, change in heat or color of the extremity, claudication, worsening change in range of motion or distal strength , cough, congestion, chest pain, shortness of breath. Patient does have a pertinent history for shortness of breath with exertion, states it is unchanged since being presented to the hospital. She has been n.p.o. since 2230 last night. History of dizziness and chronic balance problems for the last 10 years causing multiple falls. PAST MEDICAL HISTORY: 1. Type 2 diabetes, last A1c was, 6.7 approximately 1 month ago. 2. History of chronic UTIs, to her knowledge she does not have an active UTI at this time. 3. History of compression fractures. 4. History of sciatica affecting the left side. 5. History of coronary artery disease, status post 2 stents in 2008. 6. History of obstructive sleep apnea, currently on a CPAP. 7. History of endometrial cancer, status post hysterectomy. PAST SURGICAL HISTORY: JAMES 1979. Cardiac catheterization and stenting 2008. R wrist fx surgery 2007. Cataracts 2009. MEDICATIONS: Include: Vitamin D3, vitamin B12, fluticasone, omega 3, sertraline, bupropion, red yeast rice ALLERGIES: Amoxicillin, Fluoxetine, Vicodin, Augmentin, Statin Drugs SOCIAL HISTORY: Patient lives alone at [facility]. She is a DNR. Her foory-us-walgsvbz is her abjhfcd-ww-bjh as she has maintained a relationship with her partner's family beyond her . FAMILY HISTORY: No history of bleeding, CVD, cancers or pulmonary disorders. Otherwise, she denies any other known family history. REVIEW OF SYSTEMS: 10-point review of systems is negative except for as stated above. PHYSICAL EXAM: VSS, Afeb. GENERAL: Patient is alert and oriented, able to respond appropriately to questions, in no acute distress. HEENT: Normocephalic, atraumatic. EOMs intact. Moist buccal mucosa. Patent nares. Hearing intact. Cranial nerves intact. NECK: No lymphadenopathy. Full AROM. NTTP. Negative Lhermitte. Negative Spurling. MUSCULOSKELETAL: Focalized exam of bilateral lower extremities: Right hip is shortened and externally rotated. There is no erythema, edema, ecchymosis, or calor otherwise noted and skin is intact over R hip. TTP over right hip, otherwise NTTP. AROM of right hip severely limited by severe pain to the patient, however, she is able to attempt to actively attempt to extend the hip. She has good active range of motion distally from her knees, feet and ankle on with 5/5 strength present in those extremities B/L and no signs of focal deficit though diffcult to assess FROM of right knee due to severe pain to patient. Gross sensation intact B/L with DNVI B/L and no focal deficits noted. Calves are soft, supple and NTTP B/L with negative B/L Homans. Secondary survey negative. SKIN: Intact, no e/e/e/c. No tattoos noted. NEURO: Nonfocal, no deficits noted. C5-T1 and L2-S1 intact. DTRs 1+ BUEs, deferred on BLEs. PSYCH: A&Ox3, appropriate mood and affect. SECONDARY SURVEY: No other obvious MSK trauma x 4 extremities, pelvis and shoulder girdles. IMAGING: X-rays: Three views of her right were examined which showed a shortened and comminuted femoral neck fracture. No other fractures, malalignments or deformities are noted. ASSESSMENT: Right hip femoral neck Garden III displaced fracture. PLAN: At this time, patient's physical examination findings and imaging were explained at length to her. Dr Edge has recommended right hip belinda- arthroplasty, and he will be up to see her shortly to examine her and obtain consent for surgery. Please continue NPO, and plan per Dr Red, regarding history of chronic UTI, history of CVD, history of possible contusion to her head during this fall. The ER MD states our patient has clearance regarding advanced imaging of the head and would like to hold off on advanced imaging at this time. SCDs and JOE hose have been ordered, incentive spirometry, NWB to the affected area. Patient advised to watch for any worsening pain, abnormal numbness, tingling, change in heat or color of the extremity, vision changes, headaches, cough, congestion, chest pain, shortness of breath, dyspnea, worsening change in range of motion or strength and to seek immediate medical attention if seen. She understands and agrees with this course of action. Patient was seen and discussed in conjunction with Dr. Edge. CODE STATUS: DNR. NPO STATUS: 2230 on 02/06/2018. /[id number]/MODL MTDD
--- NOTE | 2018-02-07 16:28 | PDANEPAE ---
ANE Past Medical History - Cardiovascular History Hx Hypertension: Yes Hx Coronary Artery / Peripheral Vascular Disease: Yes - Pulmonary History Hx Oxygen in Use at Home: No Hx Sleep Apnea: Yes - Endocrine History Hx Diabetes: Yes Obesity: moderate ANE Review of Systems Review of Systems: - Exercise capacity Exercise capacity: limited by disability ANE Patient History - Allergies Allergies/Adverse Reactions: amoxicillin trihydrate [From Augmentin] Allergy (Intermediate, Verified 12:27) fluoxetine Allergy (Intermediate, Verified 02/07/18 12:27) Hives hydrocodone bitartrate [From Vicodin] Allergy (Intermediate, Verified 02/07/18 12:27) potassium clavula *RETIRED-03/25/12 [From Augmentin] Allergy (Intermediate, Verified 02/07/18 12:27) Iwbmdyd-Lrw-Qnp Reductase Inhibitor [Nerjfls-Lgx-Jgh Reductase Inhibitors] Allergy (Unknown, Unverified 02/07/18 12:29) amoxicillin trihydrate Allergy (Unknown, Uncoded 02/07/18 12:27) hydrocodone bitartrate Allergy (Unknown, Uncoded 02/07/18 12:27) potassium clavula *RETIRED-03/25/12 Allergy (Unknown, Uncoded 02/07/18 12:27) - Home Medications Home medications: home medication list seen and reviewed Home Medications: Cholecalciferol Vit D3 [Vitamin D3 (*)] 1,000 units PO BID 10/21/17 [Last Taken 10/21/17] Cyanocobalamin (Vitamin B-12) [B-12] 1,000 mcg PO DAILY@11 10/21/17 [Last Taken 10/21/17] Fluticasone Nasal [Flonase Nasal Tresckow] 1 - 2 sprays EACHNARE DAILY PRN [Last Taken Unknown] Monterey-3 Fatty Acids [Fish Oil 1000 mg (*)] 1,000 mg PO TID 10/21/17 [Last Taken 10/21/17] Sertraline HCl [Zoloft 100mg (*)] 150 mg PO DAILY 10/21/17 [Last Taken 10/21/17] buPROPion SR [Wellbutrin 100mg SR (*)] 100 mg PO BID 10/22/17 [Last Taken Unknown] Herbals/Supplements -Info Only 1 ea PO DAILY 02/07/18 [Last Taken Unknown] - NPO status NPO Status: no food or drink >8 hours NPO Since - Liquids (Date): 02/06/18 NPO Since - Liquids (Time): 23:30 NPO Since - Solids (Date): 02/06/18 NPO Since - Solids (Time): 20:00 - Anes Hx Anes Hx: no prior problems, slow to awaken from anesthesia - Smoking Hx Smoking Status: Never smoked ANE Labs/Vital Signs - Labs Result Diagrams: 02/07/18 12:29 02/07/18 12:29 - Vital Signs Blood Pressure: 149/89 Heart Rate: 88 Respiratory Rate: 15 O2 Sat (%): 91 Height: 154.94 cm Weight: 71.214 kg ANE Physical Exam - Airway Neck exam: FROM Mallampati Score: Class 2 Mouth exam: normal dental/mouth exam - Pulmonary Pulmonary: no respiratory distress, no rales or rhonchi, reduced air movement - Cardiovascular Cardiovascular: regular rate and rhythym, no murmur, rub, or gallop - ASA Status ASA Status: III ANE Anesthesia Plan Anesthesia Plan: GA w LMA
[2018-02-07] MEDS ORDERED: PROPOFOL 200 MG/20 ML VIAL ONE (16:45)
[2018-02-07] MEDS ORDERED: LIDOCAINE 2% JELLY 5 ML TUBE ONE (16:46)
[2018-02-07] MEDS ORDERED: ONDANSETRON 4 MG/2 ML VIAL ONE (16:46)
[2018-02-07] MEDS ORDERED: PHENYLEPHRINE HCL 100 MCG/ML SYR ONE (17:20)
[2018-02-07] MEDS ORDERED: GENTAMICIN SULFATE 80 MG/2 ML VIAL ONE (17:39)
[2018-02-07] MEDS ORDERED: VANCOMYCIN 1 GM VIAL ONE ×2 (17:40→17:45)
[2018-02-07] MEDS ORDERED: NALOXONE HCL 0.4 MG/ML INJ IVP PRN (18:26)
[2018-02-07] MEDS ORDERED: oxyCODONE IR 5 MG TAB PO PRN (18:33)
[2018-02-07] MEDS ORDERED: ACETAMINOPHEN 500 MG TAB PO PRN (18:33)
[2018-02-07] MEDS ORDERED: PROMETHAZINE HCL 25 MG/ML INJ IVP PRN ×2 (18:33→20:13)
[2018-02-07] MEDS ORDERED: ENALAPRILAT DIHYDRATE 1.25 MG/ML VIAL IVP PRN (18:33)
[2018-02-07] MEDS ORDERED: LR 500 ML IV PRN (18:33)
[2018-02-07] MEDS: fentaNYL 100 MCG/2 ML INJ IVP PRN ×4 (20:01→20:56)
[2018-02-07] MEDS ORDERED: HYDROmorphONE/DILAUDID 1 MG/ML INJ IVP PRN (20:06)
--- NOTE | 2018-02-07 20:12 | POSTOPPROG ---
Post Op Note Date of Operation: 02/07/18 Surgeon: Adam Edge Rpg Programmer: CARROL Betancur Anesthesia: GET(General Endotracheal) Pre-op Diagnosis: Right hip femoral neck fracture Post-op Diagnosis: Right hip femoral neck fracture Indication: Right hip femoral neck fracture Procedure: Right hip hemiarthroplasty Inf/Abcess present in the surg proc area at time of surgery?: No Depth: Deep Incisional (Fascial) EBL: 100-500
[2018-02-07] MEDS ORDERED: diphenhydrAMINE 25 MG CAP PO PRN (20:13)
--- NOTE | 2018-02-07 21:36 | GOP ---
[f rep st] OPERATIVE REPORT DATE OF OPERATION: 02/07/2018 SURGEON: Adam Edge MD EMAIL MARKETING INTERN: Sandi Schumacher PA-C; Veena Rios, Student. ANESTHESIA: General. ANESTHESIOLOGIST: Dr. Davis. PREOPERATIVE DIAGNOSIS: Right femoral neck fracture. POSTOPERATIVE DIAGNOSIS: Right femoral neck fracture. PROCEDURE PERFORMED: Right hip bipolar hemiarthroplasty. FINDINGS: Comminuted transcervical right femoral neck fracture. Bone quality consistent with osteopo rosis. There was some early arthritic change of the femoral head with small osteophytes and bony den udation and cartilage loss. SPECIMENS: None. ESTIMATED BLOOD LOSS: 150 cc. INDICATIONS: This is a 77-year-old female who suffered a mechanical fall earlier this morning and wa s unable to bear weight after her fall. She was brought in by ambulance to [facility] and was found to have a right femoral neck fracture. [facility] and was cleared for surgery this evening. The risks, benefits, alternatives to surg ai were described to the patient. All questions were answered prior to surgery. She provided a sig carlos a witnessed informed consent which was placed in the chart. Please see history and physical for ad ditional information. DESCRIPTION OF PROCEDURE: The patient was identified in the preop holding area and her right hip was signed as the designated operative site. She was confirmed, left lower extremity JOE hose and SCDs. She was treated with 2 g IV prophylactic cefazolin per protocol. She was taken back to the operati ng room, placed supine on the OR table. After general anesthesia was obtained by the anesthesiologis t, she was then turned to the lateral decubitus position with right leg up and down left leg on a wel l-padded OR table. Left upper extremity was placed in a well-padded arm board. Right upper extremit ies placed across a foam positioning pillow. Right lower extremity was prepped and draped in the usu al sterile manner. Standard posterolateral approach to the hip was utilized. A curvilinear incision was made over a candice gth of approximately 14 cm. The patient had abundant hip pannus and therefore the incision was large r than normal and was required in order to achieve appropriate exposure. Careful dissection was take n down through subcutaneous abundant fat tissue. All small crossing veins were coagulated. The IT b and was identified and then opened in parallel with its fibers at the level of the greater trochanter . It was extended distally down the lateral aspect of the femur. Proximally, it was curved up throu gh the fascia of the gluteus checo. The fibers of the gluteus checo muscle were carefully divide d with the Bovie cautery device. The Charnley was then placed. Dissection was then taken along the posterior aspect of the femur with sequential internal rotation o f the hip. The piriformis tendon was identified, tagged and then released from its insertion on the femur. Next, the short external rotators were carefully released from their insertion on the posteri or greater trochanter. The capsule was identified and dissection along the posterior femoral neck wa s utilized in order to release of the capsule and multiples stitches were placed in the capsule for e ventual repair after the procedure. A hockey type stick capsulotomy was performed. The hip was furt her internally rotated and the femoral neck was cleared of all soft tissues in a subperiosteal manner . Standard femoral neck cut was then performed with standard [place] cutting guide. The oscillating saw was utilized and this fractured fragment was then removed from the field. With a threaded awl, the femoral head was captured and then carefully manipulated out of the hip joint. Ligamentum teres was cut and the femoral head was delivered in its entirety. Measurements were made on the back table and a 43 mm diameter was found to be appropriate for this patient's anatomy. The femoral head was t hen discarded. Femoral head trialing was used with standard ball trialing device and a 43 mm was confirmed. Next, t he proximal femur was prepared. A hip elevator was used to elevate the proximal femur. A blunt Cobra was placed inferior to the neck. A box osteotome was used to enter the lateral aspect of the femora l neck cut. Ensuring appropriate valgus alignment sequential reaming was performed up to a size 7 at which point appropriate cortical chatter was achieved. Reaming was then performed with a size 5 bro ach. This broach was found to be of the appropriate fit for cemented hip stem and this was left in p lace for trialing. A +0 neck was found to be of the appropriate length to reestablish length and off set. All trial components were then removed from the hip. The femoral stem was then inserted. Using 3rd generation cementation technique, the proximal femur was cemented after a distal cement res trictor was placed to the appropriate depth. Cement was pressurized and then the femoral stem was pl aced in the previously established approximately 25 degrees of anteversion from broaching. This was tapped all the way down to the appropriate depth with a centralizer on the distal tip of the stem. T his was then held in position at approximately 25 degrees of anteversion with no movement whatsoever of the lower extremity to allow the cement to harden without any gaps in the cement mantle. As the c ement was maturing any excess cement was removed from the hip with a Wren elevator. Once the cement was completely cured and firm, trialing was again performed with a +0 26 x 43 mm bipolar trial. Red uction was appropriate. Rectus test was confirmed to be appropriate for tension. Shuck test was larissa ropriate. The patient was found to have excellent stability in sleep position, i.e. with full adduct ion and internal rotation as well as neutral adduction and flexion to 90 degrees and internal rotatio n with stability up to 45 degrees of internal rotation. After this, trialing was completed. The form al 26 x 43 mm bipolar head was selected and this was carefully malleted into position after the proxi mal aspect of the stem was cleansed and dried. Excellent Mueller taper engagement was achieved. Ayala tugging was used to confirm that the engagement was appropriate at the tip of the neck. A drain was placed around the neck. Final reduction was performed. Abundant irrigation was performed with the pulsatile lavage system. Closure was then performed. The capsulotomy was closed with multiple #1 Ethibond sutures. In addition, the piriformis was repair ed through the proximal tip of the greater trochanter with drill holes. Two additional #1 Ethibond's were used to reapproximate the capsule anteriorly to the proximal femur through bone tunnels. The I T band was then closed with multiple #1 Ethibond sutures. The deep abundant fat space was reapproxim ated and space was closed with multiple 0 Vicryl sutures. 2-0 Vicryl was used to close the deep dermal layer. Deja were used to close the skin. Sterile surgical dressings were applied. A JOE hose was applied as well as an SCD. An abduction pillow was applied. The anesthesia service then t ook over to wake the patient up. DRAINS: One suction drain (Davol). TOURNIQUET TIME: None. IMPLANTS: [place] Omnifit HFx hip stem, cemented size #5 with a 25 mm neck length. 26 x 43 mm bipola r component with a +0 offset. 11 mm distal cement restrictor. There is a distal stem centralizer on the end of the femoral stem. All the equipment was from [place]. COMPLICATIONS: None. DISPOSITION: The patient was extubated and transferred to PACU in stable condition. /[id number]/MODL
[2018-02-07] MEDS: buPROPion SR 100 MG TAB PO SCH (22:49)
[2018-02-07] MEDS: FAMOTIDINE 20 MG TAB PO SCH (22:49)
[2018-02-07] MEDS: oxyCODONE IR 5 MG TAB PO PRN (22:52)
[2018-02-08] MEDS: oxyCODONE IR 5 MG TAB PO PRN ×4 (00:09→20:19)
[2018-02-08] MEDS: ceFAZolin 2 GM/DEXTROSE 100 ML IV SCH ×3 (01:08→17:08)
[2018-02-08 05:25] LABS: PLATELET COUNT 129 10^3/uL (150-400)
[2018-02-08] MEDS: FAMOTIDINE 20 MG TAB PO SCH ×2 (08:31→20:18)
[2018-02-08] MEDS: SERTRALINE HCL 100 MG TAB PO SCH (08:31)
[2018-02-08] MEDS: ENOXAPARIN 40 MG/0.4 ML SYR SC SCH (08:50)
--- NOTE | 2018-02-08 10:03 | SOAPPROG ---
SOAP Progress Note Assessment/Plan: Assessment: POD #1 Right hip hemiarthroplasty: doing well, not yet up with PT/OT. Pain well controlled. Plan: Maintain dry dressing, maintain drain at this time. TTWB, up with PT/OT. Up with posterior hip precautions. Use of abduction pillow. DVT prophylaxis: chemoprophylaxis per hospitalists, appreciate their reccs, SCDs , JOE hose, IS. Continue 24hr post-op abx dosing for surgical prophylaxis, tolerates cephalosporins well. Advised to watch for abnormal bleeding/oozing, discharge, fever, chills, NVD, change in heat/color of extremity, worsening change in ROM or strength, worsening numbness/tingling, claudication and to seek immediate medical attn if seen. Patient discussed with Dr. Edge. Subjective: Alone in room. She is sitting up in bed. JOE hose and SCDs are present b/l. Able to respond appropriately to questions. States she feels her pain is improved since last night. Has not yet been up with PT/OT. Denies any fever, chills, worsening pain, abnormal numbness, tingling, change in heat or color of the extremity, claudication, abnormal bleeding/oozing/discharge. Has been compliant in abduction pillow. Is eating, has not yet passed flatus. Objective: Vital Signs Temp Pulse Resp BP Pulse Ox 36.6 C 87 18 117/55 L 95 02/08/18 07:38 02/08/18 07:38 02/08/18 07:38 02/08/18 07:38 02/08/18 07:38 Laboratory Results 02/08/18 04:43 02/07/18 02/08/18 02/09/18 05:59 05:59 05:59 Intake Total 2330 Output Total 445 Balance 1885 PT 14.1 SEC (12.0-15.0) 02/07/18 12:29 INR 1.07 (0.83-1.16) 02/07/18 12:29 Alert and oriented, able to respond appropriately to questions. No acute distress. Nonlabored breathing, no diaphoresis. Focalized exam of right hip: No abnormal bleeding/oozing/discharge, change in heat/color of extremity or around wound sites. No erythema, edema, ecchymosis or calor otherwise noted. Compartments soft, no signs of fluctuance. AROM and PROM 0-10 hip extension/flexion before pain elicited, no signs of worsening AROM /PROM since last night, FROM in distal extremities on b/l. Calves soft & supple & NTTP B/L with negative B/L Jose's. Brisk cap refill B/L with 5/5 strength present distally. SCDs and JOE hose present b/l. Gross sensation intact b/l with DNVI b/l and no focal deficits noted. ICD10 Worksheet Patient Problems: Problems Problem Status Onset Displaced fracture of right femoral neck Acute Left hip pain Acute Lumbar compression fracture Acute Vertigo Acute Vomiting Acute
[2018-02-08] MEDS: CYANO/VITAMIN B12 1000 MCG TAB PO SCH (10:12)
[2018-02-08] MEDS: traMADol 50 MG TAB PO PRN ×2 (10:12→18:56)
[2018-02-08] MEDS: buPROPion SR 100 MG TAB PO SCH ×2 (10:13→20:18)
--- NOTE | 2018-02-08 11:41 | ASMTCMCOM ---
CM Note CM Note Notes: Pt had surgery for hip fx. Pt open with [facility]. PT rec SNF, pt first choice is [facility] [place] where she has been before. Referral sent to [facility] in [employer]. CM to follow. Date Signed: 02/08/2018 11:40 AM Electronically Signed By:EFREM Kumar
[2018-02-08] MEDS ORDERED: NS 500 ML IV ONE ×2 (15:01→15:45)
--- NOTE | 2018-02-08 17:41 | HOSPPROG ---
Hospitalist Progress Note Assessment/Plan: * Hip fracture - POD #1 -PT/OT -Lovenox * Osteoporosis -restart treatment as outpatient with PCP * Dizziness -declines most prescription meds as blames meds for her chronic dizziness * CAD/stents * Sciatica * TEREZA - CPAP * DM II - diet Subjective: pain well controlled Objective: Vital Signs Temp Pulse Resp BP Pulse Ox 36.7 C 87 18 104/47 L 96 02/08/18 15:47 02/08/18 15:47 02/08/18 15:47 02/08/18 15:47 02/08/18 15:47 PT 14.1 SEC (12.0-15.0) 02/07/18 12:29 INR 1.07 (0.83-1.16) 02/07/18 12:29 - Physical Exam Constitutional: no apparent distress, appears nourished, not in pain Cardiovascular: regular rate and rhythym, no murmur, rub, or gallop Respiratory: no respiratory distress, no rales or rhonchi, clear to auscultation Gastrointestinal: normoactive bowel sounds, soft, non-tender abdomen, no palpable masses Skin: no rashes or abrasions, no fluctuance, no induration Neurologic: AAOx3, sensation intact bilaterally Psychiatric: interacting appropriately, not anxious, not encephalopathic, thought process linear ICD10 Worksheet Patient Problems: Problems Problem Status Onset Displaced fracture of right femoral neck Acute Left hip pain Acute Lumbar compression fracture Acute Vertigo Acute Vomiting Acute
--- NOTE | 2018-02-08 18:06 | PDMN ---
Medical Necessity Medical necessity: Change to IP, as of 02/08/18, per & MCG S-600; los >2 mn for ongoing management of R hip fx r/t fall s/p hemiarthroplasty POD #1; requiring further monitoring, IVFs, pain management & therapies; comorbid advanced age, chronic dizziness, diabetes, CAD s/p stents, TEREZA on CPAP
[2018-02-08] MEDS: NS 1,000 ML IV SCH (21:20)
[2018-02-09] MEDS: oxyCODONE IR 5 MG TAB PO PRN ×3 (00:53→13:23)
[2018-02-09] MEDS: traMADol 50 MG TAB PO PRN ×2 (06:38→20:44)
[2018-02-09] MEDS: ENOXAPARIN 40 MG/0.4 ML SYR SC SCH (09:45)
[2018-02-09] MEDS: SERTRALINE HCL 100 MG TAB PO SCH (09:45)
[2018-02-09] MEDS: buPROPion SR 100 MG TAB PO SCH ×2 (09:46→20:44)
[2018-02-09] MEDS: FAMOTIDINE 20 MG TAB PO SCH ×2 (09:46→20:44)
--- NOTE | 2018-02-09 11:42 | ASMTCMCOM ---
CM Note CM Note Notes: Plan is for pt to DC to [facility] when ready. A rep from [facility] left a form on desk indicating that pt agrees to use [facility] when she DC's back to [facility]. CM to follow. Date Signed: 02/09/2018 11:42 AM Electronically Signed By:Mary Ghotra LCSW
[2018-02-09] MEDS: NS 1,000 ML IV SCH (13:17)
[2018-02-09] MEDS: CYANO/VITAMIN B12 1000 MCG TAB PO SCH ×2 (13:21→13:23)
--- NOTE | 2018-02-09 14:13 | HOSPPROG ---
Hospitalist Progress Note Assessment/Plan: * Hip fracture - POD #2 -PT/OT -Lovenox * Osteoporosis -restart treatment as outpatient with PCP * Dizziness -declines most prescription meds as blames meds for her chronic dizziness * CAD/stents * Sciatica * TEREZA - CPAP * DM II - diet Subjective: some dizziness. feels ok. pain pretty well controlled Objective: Vital Signs Temp Pulse Resp BP Pulse Ox 37.0 C 91 16 103/61 94 02/09/18 07:44 02/09/18 07:44 02/09/18 07:44 02/09/18 07:44 02/09/18 07:44 Laboratory Results 02/09/18 04:50 02/08/18 02/09/18 02/10/18 05:59 05:59 05:59 Intake Total 1935 250 Output Total 40 Balance 1895 250 PT 14.1 SEC (12.0-15.0) 02/07/18 12:29 INR 1.07 (0.83-1.16) 02/07/18 12:29 - Physical Exam Constitutional: no apparent distress, appears nourished, not in pain Eyes: anicteric sclera, EOMI Ears, Nose, Mouth, Throat: moist mucous membranes, hearing normal Cardiovascular: regular rate and rhythym, no murmur, rub, or gallop, No edema Respiratory: no respiratory distress, no rales or rhonchi, clear to auscultation Gastrointestinal: normoactive bowel sounds, soft, non-tender abdomen, no palpable masses Skin: warm Neurologic: AAOx3 ICD10 Worksheet Patient Problems: Problems Problem Status Onset Displaced fracture of right femoral neck Acute Left hip pain Acute Lumbar compression fracture Acute Vertigo Acute Vomiting Acute
--- NOTE | 2018-02-09 14:56 | SOAPPROG ---
SOAP Progress Note Assessment/Plan: Assessment: POD #2 Right hip hemiarthroplasty: doing well, has been up with PT/OT. Pain well controlled. Plan: Maintain dry dressing, maintain drain at this time. WBAT, up with PT/OT. Up with posterior hip precautions. Use of abduction pillow. DVT prophylaxis: chemoprophylaxis per hospitalists, appreciate their reccs, SCDs , JOE goetze, IS. Continue 24hr post-op abx dosing for surgical prophylaxis, tolerates cephalosporins well. Advised to watch for abnormal bleeding/oozing, discharge, fever, chills, NVD, change in heat/color of extremity, worsening change in ROM or strength, worsening numbness/tingling, claudication and to seek immediate medical attn if seen. Patient discussed with Dr. Edge. 02/09/18 14:52 Subjective: Alone in room. She is sitting up in bed, has been eating regular meals. JOE goetze and SCDs are present b/l. Able to respond appropriately to questions. States she feels her pain is continuously improving. Has been up with PT/OT and attempting to ambulate. Denies any fever, chills, worsening pain, abnormal numbness, tingling, change in heat or color of the extremity, claudication, abnormal bleeding/oozing/discharge. Has been compliant in abduction pillow. Has not yet passed flatus or had BM. Objective: Vital Signs Temp Pulse Resp BP Pulse Ox 37.0 C 91 16 103/61 94 02/09/18 07:44 02/09/18 07:44 02/09/18 07:44 02/09/18 07:44 02/09/18 07:44 Laboratory Results 02/09/18 04:50 02/08/18 02/09/18 02/10/18 05:59 05:59 05:59 Intake Total 1935 250 Output Total 40 Balance 1895 250 PT 14.1 SEC (12.0-15.0) 02/07/18 12:29 INR 1.07 (0.83-1.16) 02/07/18 12:29 Alert and oriented, able to respond appropriately to questions. Afebrile. No acute distress. Nonlabored breathing, no diaphoresis. Focalized exam of right hip: No abnormal bleeding/oozing/discharge, change in heat/color of extremity or around wound sites. No erythema, edema, ecchymosis or calor otherwise noted. Compartments soft, no signs of fluctuance. AROM and PROM 0-10 hip extension/flexion before pain elicited, no signs of worsening AROM /PROM since yesterday, FROM in distal extremities on b/l. Calves soft & supple & NTTP B/L with negative B/L Jose's. Brisk cap refill B/L with 5/5 strength present distally. SCDs and JOE hose present b/l. Gross sensation intact b/l with DNVI b/l and no focal deficits noted. Drain in place, still putting out significant output, therefore will maintain. 2 views of right hip show hip hemiarthroplasty in good position/alignment, with no fractures, malalignments or deformities otherwise noted. - Pending Discharge Pending Discharge Within 24 Hours: No ICD10 Worksheet Patient Problems: Problems Problem Status Onset Displaced fracture of right femoral neck Acute Left hip pain Acute Lumbar compression fracture Acute Vertigo Acute Vomiting Acute
[2018-02-09] MEDS ORDERED: NS 1,000 ML IV SCH (16:00)
[2018-02-10] MEDS: oxyCODONE IR 5 MG TAB PO PRN ×3 (03:14→22:43)
[2018-02-10 05:02] LABS: PLATELET COUNT 73 10^3/uL (150-400)
[2018-02-10] MEDS: ENOXAPARIN 40 MG/0.4 ML SYR SC SCH (09:19)
[2018-02-10] MEDS: FAMOTIDINE 20 MG TAB PO SCH ×2 (09:19→20:37)
[2018-02-10] MEDS: SERTRALINE HCL 100 MG TAB PO SCH (09:20)
[2018-02-10] MEDS: buPROPion SR 100 MG TAB PO SCH ×2 (09:20→20:38)
--- NOTE | 2018-02-10 10:59 | HOSPPROG ---
Hospitalist Progress Note Assessment/Plan: * Hip fracture - POD #3 -PT/OT -Lovenox * encephalopathy vs delirium * will check UA * not sleeping well - wasn't getting CPAP last night - will try to get her a machine tonight * Osteoporosis -restart treatment as outpatient with PCP * Dizziness -declines most prescription meds as blames meds for her chronic dizziness * CAD/stents * Sciatica * TEREZA - CPAP * DM II - diet Subjective: more confusion this am Objective: Vital Signs Temp Pulse Resp BP Pulse Ox 36.7 C 100 18 115/63 93 02/10/18 08:00 02/10/18 08:00 02/10/18 08:00 02/10/18 08:00 02/10/18 08:00 Laboratory Results 02/10/18 04:27 02/10/18 04:27 02/09/18 02/10/18 02/11/18 05:59 05:59 05:59 Intake Total 1935 1985 Output Total 40 80 Balance 1895 1905 PT 14.1 SEC (12.0-15.0) 02/07/18 12:29 INR 1.07 (0.83-1.16) 02/07/18 12:29 - Physical Exam Constitutional: no apparent distress, appears nourished, not in pain Eyes: anicteric sclera, EOMI Ears, Nose, Mouth, Throat: moist mucous membranes Cardiovascular: regular rate and rhythym Respiratory: no respiratory distress, no rales or rhonchi, clear to auscultation Gastrointestinal: normoactive bowel sounds, soft, non-tender abdomen, no palpable masses Skin: warm Neurologic: other (oriented to place and time. says she feels a little confused) ICD10 Worksheet Patient Problems: Problems Problem Status Onset Displaced fracture of right femoral neck Acute Left hip pain Acute Lumbar compression fracture Acute Vertigo Acute Vomiting Acute
--- NOTE | 2018-02-10 14:03 | SOAPPROG ---
SOAP Progress Note Assessment/Plan: Assessment: POD #3 Right hip hemiarthroplasty: doing well, has been up with PT/OT. Pain well controlled. Had an episode of delirium last night, UA was performed showing UTI. Plan: Maintain dry dressing. Drain was removed at today's visit, no signs of infection around drain site. No abnormal bleeding/oozing/discharge was produced after removal of drain. WBAT, up with PT/OT. Up with posterior hip precautions. Use of abduction pillow. DVT prophylaxis: chemoprophylaxis per hospitalists, appreciate their reccs, SCDs , JOE hose, IS. Please replace JOE hose. Please continue plan per hospitalists. Continue 24hr post-op abx dosing for surgical prophylaxis, tolerates cephalosporins well. Advised to watch for abnormal bleeding/oozing, discharge, fever, chills, NVD, change in heat/color of extremity, worsening change in ROM or strength, worsening numbness/tingling, claudication and to seek immediate medical attn if seen. Patient discussed with Dr. Edge. Subjective: Alone in room. She is sitting up in bed, has been eating regular meals. JOE hose and SCDs are not present b/l. Able to respond appropriately to questions. States she feels her pain is continuously improving and she has been ambulating more, was able to stand during today's exam. Has been up with PT/OT and attempting to ambulate. Denies any fever, chills, worsening pain, abnormal numbness, tingling, change in heat or color of the extremity, claudication, abnormal bleeding/oozing/discharge. Has been compliant in abduction pillow. Has passed flatus, no BM yet. Per RN, she had a moment of delirium last night where she was unaware of where she was, thinking she was at home. A U/A was performed. Objective: Vital Signs Temp Pulse Resp BP Pulse Ox 36.5 C 88 16 108/68 98 02/10/18 13:54 02/10/18 13:54 02/10/18 13:54 02/10/18 13:54 02/10/18 13:54 Laboratory Results 02/10/18 04:27 02/10/18 04:27 02/09/18 02/10/18 02/11/18 05:59 05:59 05:59 Intake Total 1934 1984 Output Total 40 80 Balance 1894 1904 PT 14.1 SEC (12.0-15.0) 02/07/18 12:29 INR 1.07 (0.83-1.16) 02/07/18 12:29 Alert and oriented, able to respond appropriately to questions. Afebrile. No acute distress. Nonlabored breathing, no diaphoresis. Focalized exam of right hip: No abnormal bleeding/oozing/discharge, change in heat/color of extremity or around wound sites. No erythema, edema, ecchymosis or calor otherwise noted. Compartments soft, no signs of fluctuance. AROM and PROM 0-10 hip extension/flexion before pain elicited, no signs of worsening AROM /PROM since yesterday, FROM in distal extremities on b/l. Calves soft & supple & NTTP B/L with negative B/L Jose's. Brisk cap refill B/L with 5/5 strength present distally. SCDs and JOE hose present b/l. Gross sensation intact b/l with DNVI b/l and no focal deficits noted. Able to attempt to stand during exam and was able to bear weight. Drain in place, will remove today. 2 views of right hip show hip hemiarthroplasty in good position/alignment, with no fractures, malalignments or deformities otherwise noted. ICD10 Worksheet Patient Problems: Problems Problem Status Onset Displaced fracture of right femoral neck Acute Left hip pain Acute Lumbar compression fracture Acute Vertigo Acute Vomiting Acute
[2018-02-10] MEDS ORDERED: BISACODYL 10 MG SUPP PR PRN (16:43)
[2018-02-10] MEDS ORDERED: POLYETHYLENE GLYCOL 3350 17 GM PKT PO PRN (16:43)
[2018-02-10] MEDS ORDERED: MAGNESIUM HYDROXIDE 30 ML UDCUP PO PRN (16:43)
[2018-02-10] MEDS ORDERED: LACTULOSE 20 GM/30 ML UDCUP PO PRN (16:43)
[2018-02-10] MEDS: SENNOSIDES/DOCUSATE SODIUM TAB PO SCH (20:37)
[2018-02-11] MEDS ORDERED: MELATONIN 3 MG TAB PO PRN (01:09)
[2018-02-11 05:03] LABS: PLATELET COUNT 99 10^3/uL (150-400)
--- NOTE | 2018-02-11 09:06 | SOAPPROG ---
SOAP Progress Note Assessment/Plan: Assessment: POD #4 Right hip hemiarthroplasty: doing well, has been up with PT/OT. Pain well controlled. Had an episode of delirium last night, UA was performed showing UTI. Plan: Maintain dry dressing. Drain was removed yesterday, no signs of infection around drain site. No abnormal bleeding/oozing/discharge was produced after removal of drain. WBAT, up with PT/OT. Up with posterior hip precautions. Use of abduction pillow. DVT prophylaxis: chemoprophylaxis per hospitalists, appreciate their reccs, SCDs , JOE hose, IS. Please replace JOE hose/SCDs. Please continue plan per hospitalists. Continue 24hr post-op abx dosing for surgical prophylaxis, tolerates cephalosporins well. Advised to watch for abnormal bleeding/oozing, discharge, fever, chills, NVD, change in heat/color of extremity, worsening change in ROM or strength, worsening numbness/tingling, claudication and to seek immediate medical attn if seen. Patient discussed with Dr. Edge. 02/11/18 09:03 02/11/18 09:05 Subjective: Alone in room. She is sitting up in jamal, has been eating regular meals, states she feels tired this morning. JOE hose and SCDs are not present b/l. Able to respond appropriately to questions. States she feels her pain is continuously improving, was able to stand during today's exam. Has been up with PT/OT and attempting to ambulate. Denies any fever, chills, worsening pain , abnormal numbness, tingling, change in heat or color of the extremity, claudication, abnormal bleeding/oozing/discharge. Has been compliant in abduction pillow. Has passed flatus, no BM yet. Objective: Vital Signs Temp Pulse Resp BP Pulse Ox 36.6 C 84 16 122/53 H 99 02/11/18 07:26 02/11/18 07:26 02/11/18 07:26 02/11/18 07:26 02/11/18 07:26 Laboratory Results 02/11/18 04:41 02/11/18 04:41 02/10/18 02/11/18 02/12/18 05:59 05:59 05:59 Intake Total 1985 640 Output Total 80 275 Balance 1905 365 PT 14.1 SEC (12.0-15.0) 02/07/18 12:29 INR 1.07 (0.83-1.16) 02/07/18 12:29 Alert and oriented, able to respond appropriately to questions. Afebrile. No acute distress. Nonlabored breathing, no diaphoresis. Focalized exam of right hip: No abnormal bleeding/oozing/discharge, change in heat/color of extremity or around wound sites. No erythema, edema, ecchymosis or calor otherwise noted. Compartments soft, no signs of fluctuance. AROM and PROM 0-10 hip extension/flexion before pain elicited, no signs of worsening AROM /PROM since yesterday, FROM in distal extremities on b/l. Calves soft & supple & NTTP B/L with negative B/L Jose's. Brisk cap refill B/L with 5/5 strength present distally. SCDs and JOE hose are not present b/l. Gross sensation intact b/l with DNVI b/l and no focal deficits noted. Able to attempt to stand during exam and was able to bear weight. Drain no longer in place. 2 views of right hip show hip hemiarthroplasty in good position/alignment, with no fractures, malalignments or deformities otherwise noted. ICD10 Worksheet Patient Problems: Problems Problem Status Onset Displaced fracture of right femoral neck Acute Left hip pain Acute Lumbar compression fracture Acute Vertigo Acute Vomiting Acute
[2018-02-11] MEDS: oxyCODONE IR 5 MG TAB PO PRN (09:29)
[2018-02-11] MEDS: CYANO/VITAMIN B12 1000 MCG TAB PO SCH (09:30)
[2018-02-11] MEDS: SERTRALINE HCL 100 MG TAB PO SCH (09:30)
[2018-02-11] MEDS: buPROPion SR 100 MG TAB PO SCH (09:31)
[2018-02-11] MEDS: FAMOTIDINE 20 MG TAB PO SCH (09:31)
[2018-02-11] MEDS: SENNOSIDES/DOCUSATE SODIUM TAB PO SCH (09:31)
[2018-02-11] MEDS: ENOXAPARIN 40 MG/0.4 ML SYR SC SCH (09:31)
--- NOTE | 2018-02-11 11:32 | WOCRNPDOC ---
WOCRN Advanced Assessment Note - Skin Integrity Problem, Advanced Assess Lower Gluteal Cleft Dressing Type: Open to Air Exudate Amount: None Britt Wound Tissue: Blanching Wound Bed Color: Alix Wound Bed Constitution: Red/Alix - Non Granular Tissue (100%) Site Measurement - Head-to-Toe Length X Width X Depth (cm): 3.1x0.3x0.1 Skin Integrity Problem Comment: Sacral and coccyx area blanching. Patient is incontinent of urine and had an episode of incontinence when asked to stand. Area of skin breakdown appears to be moisture related and is in the intertriginous area. Recommended to Gee LAGUNAS that a PureWick may be beneficial to the patient to manage incontinence. Educated patient on off-loading her bottom to prevent the development of pressure injuries and that she should not sit in the chair for long periods of time without moving. Wound care will sign off on this wound, please reconsult PRN.
[2018-02-11] MEDS ORDERED: oxyCODONE IR 5 MG TAB PO PRN (14:28)
--- NOTE | 2018-02-11 14:36 | PDIAF ---
- Diagnosis Diagnosis: R hip surgery, possible UTI Code Status: Do Not Resuscitate - Medication Management Discharge Medications: Medications to Continue on Transfer Cholecalciferol Vit D3 [Vitamin D3 (*)] 1,000 units PO BID 10/21/17 [Last Taken 10/21/17] Cyanocobalamin (Vitamin B-12) [B-12] 1,000 mcg PO DAILY@11 10/21/17 [Last Taken 10/21/17] Fluticasone Nasal [Flonase Nasal [place]] 1 - 2 sprays EACHNARE DAILY PRN [Last Taken Unknown] [place]-3 Fatty Acids [Fish Oil 1000 mg (*)] 1,000 mg PO TID 10/21/17 [Last Taken 10/21/17] Sertraline HCl [Zoloft 100mg (*)] 150 mg PO DAILY 10/21/17 [Last Taken 10/21/17] buPROPion SR [Wellbutrin 100mg SR (*)] 100 mg PO BID 10/22/17 [Last Taken Unknown] Herbals/Supplements -Info Only 1 ea PO DAILY 02/07/18 [Last Taken Unknown] Acetaminophen [Tylenol 325mg (*)] 650 mg PO Q4 PRN tab 02/11/18 [Last Taken Unknown] Cefdinir [Omnicef (*)] 300 mg PO BID #2 cap 02/11/18 [Last Taken Unknown] Enoxaparin [Lovenox 40 MG (*)] 40 mg SC DAILY #30 syr 02/11/18 [Last Taken Unknown] Melatonin [Melatonin 3 MG (*)] 3 - 6 mg PO HS PRN tab 02/11/18 [Last Taken Unknown] Polyethylene Glycol 3350 [Miralax 17 gm (*)] 17 gm PO DAILY PRN pkt 02/11/18 [ Last Taken Unknown] Sennosides/Docusate Sodium [Senokot-S] 1 - 2 tab PO BID tab 02/11/18 [Last Taken Unknown] celeCOXIB [Celebrex (*)] 200 mg PO DAILY cap 02/11/18 [Last Taken Unknown] oxyCODONE IR [Oxycodone Ir (*)] 2.5 - 5 mg PO Q4 PRN tab 02/11/18 [Last Taken Unknown] Alf Antibiotics: Omnicef 300mg PO bid [employer] Antibiotic Stop Date: 02/13/18 (start 7/31 AM) Additional Medication Instructions: continue lovenox 40mg daily x 30 days (stop date 03/13) Discharge Medications: Refer to the Discharge Home Medication list for PRN reason. PICC Care - Routine: N/A - Orders Services needed: Registered Nurse, Certified Msws, [employer] , Physical Therapy, Occupational Therapy Isolation Type: None Oxygen: 2LPM, wean as tolerated (2/2 atelectasis) Diet Recommendation: no restrictions on diet Weigh Patient: weekly Rice: Not applicable Cole Stockings Discontinue Date: 03/13/18 Wound Care Instructions: keep area clean, dry, intact Sutures/[place] Site: R hip Activity/Weight Bearing Restrictions: WBAT, up with PT/OT. Up with posterior hip precautions. Use of abduction pillow. - Follow Up Care Current Providers and Referrals: Patient,NotPresent [Unknown] - As per Instructions Adam Edge MD [Medical Doctor] - follow up in 2 weeks
--- NOTE | 2018-02-11 14:59 | ASMTLACE ---
LACE Length of stay for Answers: 3 days current admission Acuity / Level of Answers: Yes Care: Did the patient have an inpatient admission? Comorbidities - select Answers: Coronary Artery Disease all that apply Diabetes (uncontrolled or controlled) Other Notes: Sleep apnea # of Emergency department Answers: 1-2 visits in the last 6 months Score: 11 Date Signed: 02/11/2018 02:55 PM Electronically Signed By:Tamara Chowdhury RN
[2018-02-11 16:11] VITALS: BP 115/73
--- NOTE | 2018-02-11 18:05 | PDDCSUM ---
Discharge Summary Discharge Summary: DISCHARGE SUMMARY FOLLOW-UP ITEMS: Urine culture pending at time of discharge currently no growth Outpatient DEXA scan DATE OF ADMISSION: 02/07/2018 DATE OF DISCHARGE: 02/11/2018 DISCHARGE DIAGNOSES: 1. Acute, suspected pathological osteoporotic hip fracture 2. Acute encephalopathy 3. Possible urinary tract infection 4. Acute atelectasis 5. Acute blood loss anemia CONSULTATIONS: Orthopedics PROCEDURES / IMAGING: Right hip surgery by Dr. Adam Edge CHIEF COMPLAINT: Acute fall with right hip pain SUBJECTIVE: Patient is feeling well at time discharge, she reports that she has some ongoing cognitive fogginess but is not pervasive PHYSICAL EXAM ON DISCHARGE: Systolic blood pressure is 110-130, heart rate 80-90, afebrile overnight, satting on 2 L nasal cannula, alert awake oriented x3, no apparent distress, concentration /, inspiratory crackles in the bilateral bases which clear with cough, soft tissue edema but no overt tenderness in right lateral hip, sensation intact bilateral lower extremities LABS ON DISCHARGE: White blood count 4200, hemoglobin 8.1, platelets 147694, creatinine 0.9, potassium 3.7 HOSPITAL COURSE BY PROBLEM: The patient presented with an acute mechanical fall and resultant pathological right hip fracture from the standing position, likely 2/2 undertreated osteoporosis. Patient was taken to the operating room by Dr. Adam Edge for repair, and the patient's postoperative course was complicated by acute encephalopathy evidenced by global brain dysfunction characterized as confusion , cognitive fogginess, worse at night, which was an acute change from her cognitive baseline and most likely secondary to the metabolic effects of either urinary tract infection or toxic effects of opiate pain medications. The patient's alteration in mental status extended her length of stay, and provoked an infectious workup. She had a possible urinary tract infection which was treated with 2 days of IV ceftriaxone, with the 3rd day of Antibiotics with Omnicef after discharge. Her pain medications were also reduced in their dosages comma from 5-10 mg of oxycodone immediate release to 2.5-5 mg as needed. The patient will also be continued on nonsteroidal anti-inflammatory medication, as needed Tylenol, DVT prophylaxis with Lovenox 40 for 4 subsequent weeks. Her atelectasis will be treated with ongoing use of incentive spirometer and weaning of her supplemental oxygen as she continues to engage with physical therapy. The patient did experience acute blood loss anemia with hemoglobin level down trending to 8.1 from a baseline of approximately 14. The patient's hemoglobin level stabilized and she did not have any evidence of active exsanguination at time of discharge. She will follow up with Orthopedics in 2 weeks and will be weight-bearing as tolerated until that time. DISCHARGE MEDICATIONS: Please see official discharge medication reconciliation sheet in chart , Celebrex scheduled twice daily, oxycodone immediate release as needed 2.5-5 mg q.4 hours p.r.n. Pain, Lovenox 40 mg daily x4 weeks, Omnicef 300 mg twice daily for 1 subsequent day. DISCHARGE INSTRUCTIONS: Please follow-up with your orthopedist in 2 weeks, her primary care provider [facility] to [facility] DEXA. TIME SPENT: Greater than 30 minutes were spent on direct patient care, as well as discharge planning and preparation.
--- NOTE | 2018-02-12 10:51 | ASDISCHSUM ---
Discharge Information Plan Status:SNF Medically Cleared to Leave: Discharge Date:02/11/2018 05:36 PM CM D/C Disposition: ADT D/C Disposition:[facility] Facility Projected Discharge Date:02/11/2018 11:00 AM Transportation at D/C: Discharge Delay Reason: Follow-Up Date:02/11/2018 11:00 AM Discharge Slot: Final Diagnosis: Placement Information Referral Type:*Assisted/SNF Referral ID:[id number] Provider Name:Erna Mccarty Address 1:[address] Phone Number: Address 2: Fax Number: City:[place] Selection Factors: State:[place] Patient Contact Information Contact Name:WILFRIDO Relationship:Friend Address:[address] City:[place] Alternate Phone: State/Zip Code:[place] [address] Email: Financial Information Financial Class:Medicare Primary Plan Desc:MEDICARE INPATIENT Primary Plan Number:[id number] Secondary Plan Desc:[employer]/MDR SUPPLEMENT Secondary Plan Number:[id number] Assessment Information LACE LACE Length of stay for Answers: 3 days current admission Acuity / Level of Answers: Yes Care: Did the patient have an inpatient admission? Comorbidities - select Answers: Coronary Artery Disease all that apply Diabetes (uncontrolled or controlled) Other Notes: Sleep apnea # of Emergency department Answers: 1-2 visits in the last 6 months Score: 11 Date Signed: 02/11/2018 02:55 PM Electronically Signed By:Tamara Chowdhury RN [facility] CM Progress Note CM Note CM Note Notes: Pt had surgery for hip fx. Pt open with [facility] PT. PT rec SNF, pt first choice is [facility] [place] where she has been before. Referral sent to in [employer]. CM to follow. Date Signed: 02/08/2018 11:40 AM Electronically Signed By:EFREM Kumar [facility] CM Progress Note CM Note CM Note Notes: Plan is for pt to DC to [facility] when ready. A rep from [facility] left a form on CM desk indicating that pt agrees to use [facility] when she DC's back to [facility]. CM to follow. Date Signed: 02/09/2018 11:42 AM Electronically Signed By:Mary Ghotra LCSW Case Management Discharge Plan Note Case Management Discharge Discharge Order Complete? Answers: Yes Patient to Obtain Answers: Other Notes: [facility] Transportation Arranged Answers: Other Notes: [email or web address] will Pick (Date 02/11/2018 05:00 PM & Time) Faxed Final Orders Answers: Yes Agency/Facility Transfer Answers: Yes Report Printed & Faxed to Receiving Agency Discharge Comments Notes: D/jamie SUTHERLAND, final orders faxed. Yoselin at and Jd langley, RN to call report. Intervention Information Intervention Type:*Incorrect Registration Date of Service:02/07/2018 12:50 PM Patient Type:Observation Staff Member:BEBO Arzate Courtney Hours: Discipline: Severity: Comment: Intervention Type:*BENEDICT-Signed Date of Service:02/08/2018 01:53 PM Patient Type:Observation Staff Member:Marcy Cardoza Hours: Discipline: Severity: Comment: Intervention Type:*IM-Signed Date of Service:02/11/2018 03:25 PM Patient Type:Inpatient Staff Member:Marcy Cardoza Hours: Discipline: Severity: Comment:
--- NOTE | 2018-02-13 22:10 | GPROG ---
[f rep st] PROGRESS NOTE POST ANESTHESIA NOTE The patient was delivered to the PACU in good condition following her hip surgery. She was awake and denied significant pain or nausea. There were no evident anesthetic complications. /[id number]/MODL
== END 2018-02-11 17:36 | DRG 469 ==
LOC: EDUNIT# → INTOOBSV 13:02 → F3N 21:02 → OBSVTOIN 02-08 15:08
PROVIDERS: ADMIT Internal Medicine; ATTEND Internal Medicine
PROC: 0SRR0J9 Replacement of Right Hip Joint, Femoral Surface with Synthetic Substitute, Cemented, Open Approach (ICD-10-PCS; principal; 2018-02-07 16:15)
DX: M80.051A Age-related osteoporosis with current pathological fracture, right femur, initial encounter for fracture (principal); G93.49 Other encephalopathy; D62 Acute posthemorrhagic anemia; N39.0 Urinary tract infection, site not specified; J98.11 Atelectasis; T50.7X5A Adverse effect of analeptics and opioid receptor antagonists, initial encounter; W18.39XA Other fall on same level, initial encounter; E11.9 Type 2 diabetes mellitus without complications; I25.10 Atherosclerotic heart disease of native coronary artery without angina pectoris; G47.33 Obstructive sleep apnea (adult) (pediatric); I10 Essential (primary) hypertension; Z66 Do not resuscitate; Z95.5 Presence of coronary angioplasty implant and graft; Z87.440 Personal history of urinary (tract) infections; Z90.710 Acquired absence of both cervix and uterus; Z85.44 Personal history of malignant neoplasm of other female genital organs
CPT/HCPCS: 97110-GP; 97162-GP; 97166-GO; 97530-GP; 97535-GO; C1713; G0378; G8978-GP-CM; G8979-GP-CJ; G8987-GO-CL; G8988-GO-CJ; J0171; J0690; J0696; J1580; J1650; J2270; J2370; J2405; J2704; J3010; J3370

== ENCOUNTER → 2018-03-01 | Outpatient (CLI) | payer OTHER, MEDICARE | LOC: FIMAGING 11:11 | PROVIDERS: ATTEND Orthopaedic Surgery | DX: R60.0 Localized edema (principal) ==

== ENCOUNTER → 2018-04-02 | Outpatient (CLI) | payer OTHER, MEDICARE | LOC: FIMAGING 14:16 | PROVIDERS: ATTEND Internal Medicine | DX: M81.0 Age-related osteoporosis without current pathological fracture (principal); Z78.0 Asymptomatic menopausal state; M43.8X4 Other specified deforming dorsopathies, thoracic region; M43.8X6 Other specified deforming dorsopathies, lumbar region; Z87.310 Personal history of (healed) osteoporosis fracture ==

== ENCOUNTER 2018-04-03 15:06 | Emergency (ER) | payer OTHER, MEDICARE ==
--- NOTE | 2018-04-03 15:11 | EDPHY ---
H & P Time Seen by Provider: 04/03/18 15:11 - Medical/Surgical History Hx Asthma: No Hx Chronic Respiratory Disease: No Hx Diabetes: Yes Hx Cardiac Disease: Yes Hx Renal Disease: No Hx Cirrhosis: No Hx Alcoholism: No Hx HIV/AIDS: No Hx Splenectomy or Spleen Trauma: No Other PMH: DM, cardiac stents x2, falls, htn, vertigo - Social History Smoking Status: Never smoked Constitutional: Initial Vital Signs Temperature (C) 36.8 C 04/03/18 15:06 Heart Rate 85 04/03/18 15:06 Respiratory Rate 16 04/03/18 15:06 Blood Pressure 108/90 H 04/03/18 15:06 O2 Sat (%) 94 04/03/18 15:06 O2 Delivery Mode Room Air Allergies/Adverse Reactions: fluoxetine Allergy (Intermediate, Verified 02/07/18 12:27) Hives hydrocodone bitartrate [From Vicodin] Allergy (Intermediate, Verified 02/08/18 08:43) DIZZINESS Rpygost-Luu-Jti Reductase Inhibitor [Bkfucax-Lfe-Idj Reductase Inhibitors] Allergy (Intermediate, Verified 02/08/18 08:43) DIZZINESS amoxicillin [From Augmentin] Allergy (Unknown, Verified 02/08/18 08:43) clavulanic acid [From Augmentin] Allergy (Unknown, Verified 02/08/18 08:43) Home Medications: Medication Instructions Recorded Cholecalciferol Vit D3 [Vitamin D3 1,000 units PO BID 10/21/17 (*)] Cyanocobalamin (Vitamin B-12) 1,000 mcg PO DAILY@11 10/21/17 [B-12] Fluticasone Nasal [Flonase Nasal 1 - 2 sprays EACHNARE DAILY PRN 10/21/17 [place]] Clubb-3 Fatty Acids [Fish Oil 1000 1,000 mg PO TID 10/21/17 mg (*)] Sertraline HCl [Zoloft 100mg (*)] 150 mg PO DAILY 10/21/17 buPROPion SR [Wellbutrin 100mg SR 100 mg PO BID 10/22/17 (*)] Herbals/Supplements -Info Only 1 ea PO DAILY 02/07/18 Acetaminophen [Tylenol 325mg (*)] 650 mg PO Q4 PRN tab 02/11/18 Cefdinir [Omnicef (*)] 300 mg PO BID #2 cap 02/11/18 Enoxaparin [Lovenox 40 MG (*)] 40 mg SC DAILY #30 syr 02/11/18 Melatonin [Melatonin 3 MG (*)] 3 - 6 mg PO HS PRN tab 02/11/18 Polyethylene Glycol 3350 [Miralax 17 gm PO DAILY PRN pkt 02/11/18 17 gm (*)] Sennosides/Docusate Sodium 1 - 2 tab PO BID tab 02/11/18 [Senokot-S] celeCOXIB [Celebrex (*)] 200 mg PO DAILY cap 02/11/18 oxyCODONE IR [Oxycodone Ir (*)] 2.5 - 5 mg PO Q4 PRN tab 02/11/18 Medical Decision Making - Diagnostics Imaging Results: Imaging Impressions Hip X-Ray 04/03/18 15:20 Impression: No source for new pain identified. Please see above. Imaging: I viewed and interpreted images myself ED Course/Re-evaluation: CHIEF COMPLAINT: Right hip pain HISTORY OF PRESENT ILLNESS: This patient is a 77 year old female with history of hypertension, CAD, diabetes mellitus complaining of right hip pain. She is s/p partial hip replacement surgery six weeks ago with Dr. Edge, orthopedic surgeon. The surgery was completed following a fall 02/08/18. She had a routine recovery and had been feeling well since her rehabilitation. Yesterday, she had to walk quite a distance compared to her other activity since her surgery. Her pain returned last night in the middle of the night. She denies any falls or trauma. She otherwise feels well. No chest pain or shortness of breath. No fever, chills , nausea, vomiting, diarrhea, urinary complaints, or other associated symptoms. REVIEW OF SYSTEMS: A comprehensive 10 system review of systems is otherwise negative aside from elements mentioned in the history of present illness and medical decision making. PHYSICAL EXAM: HR, BP, O2 Sat, RR. Temp noted General Appearance: Alert, well hydrated, appropriate, and non-toxic appearing. Head: Atraumatic without scalp tenderness or obvious injury Eyes: Pupils equal, round, reactive to light and accommodation, EOMI, no trauma , no injection. Throat: There is no erythema or exudates, no lesions, normal tonsils, mucus membranes moist. Neck: Supple, 2+ carotid upstroke, nontender, no lymphadenopathy. Respiratory: No retractions, no distress, no wheezes, and no accessory muscle use. Lungs are clear to auscultation bilaterally. Cardiovascular: Regular rate and rhythm, no murmurs, rubs, or gallops. Bilateral carotid, radial, dorsalis pedis, and posterior tibial pulses intact. Good capillary refill all extremities. Gastrointestinal: Abdomen is soft, nontender, non-distended, no masses, no rebound, no guarding, no peritoneal signs. Musculoskeletal: Normal active ROM of all extremities, atraumatic. Neurological: Alert, appropriate, and interactive. The patient has normal DTRs and non-focal cranial nerves, motor, sensory, and cerebellar exam. Skin: No rashes, good turgor, no nodules on palpation. Past medical history: Diabetes mellitus, hypertension, vertigo, CAD s/p stent placement x 2 Past surgical history: Partial hip replacement. Family history: Noncontributory. Social history: Retired. Lives in [place]. Does not abuse tobacco, drugs, or alcohol. DIFFERENTIAL DIAGNOSIS: Includes but not limited to fracture, dislocation, strain, sprain, overuse. MEDICAL DECISION MAKIN77 year old female presents with postoperative right hip pain. Plan for hip x- ray to r/o acute osseous abnormalities or other acute processes. 16:23 Reviewed x-ray. No acute trauma. Reassessed patient. Discussed imaging results. Reassured the patient there is no evidence of acute re-injury. 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 Return precautions discussed. She is comfortable with this plan. Departure - Departure Disposition: Home, Routine, Self-Care Clinical Impression: Acute postoperative pain of right hip Condition: Good Instructions: Hip Pain (ED) Additional Instructions: 1. Follow up with your orthopedic surgeon for further evaluation. 2. Follow your postoperative instructions as directed by your surgeon. 3. Return to the emergency department for severe pain, fever, or other worsening of condition. Referrals: Adam Edge MD [Medical Doctor] - As per Instructions Report Scribed for: Wil Carreno Report Scribed by: Jennifer Garcia Date of Report: 04/03/18 Time of Report: 15:17
[2018-04-03 16:53] VITALS: BP 137/62
== END 2018-04-03 17:16 | disposition home or self-care (01) ==
LOC: EDUNIT#
DX: M25.551 Pain in right hip (principal); G89.18 Other acute postprocedural pain; E11.9 Type 2 diabetes mellitus without complications; I10 Essential (primary) hypertension